=== PATIENT | female | born 1955 | race Caucasian/White ===

== ENCOUNTER 2017-06-09 07:00 | Day surgery (SDC) | payer OTHER ==
[~2017-06-09] VITALS: Ht 162.6 cm; Wt 106.6 kg
[~2017-06-09 07:00] MED LIST: ATIVAN1 MG PO; AZITHROMYCIN500 MG PO; B COMPLETE1 EACH PO; BAL B-1001 EACH PO; CEFDINIR300 MG PO; DEXAMETHASONE4 MG PO; DOK100 MG PO; HYDROCODON-ACE1 EAC8 PO; IBUPROFEN600 MG PO; IRON325 M1 PO; L-GLUTAMINE25 G1 MISC; LISINOPRIL30 MG PO; LOMOTIL TABLET1 EACH PO; NEURONTIN300 MG PO; NORCO 5-325 TA1 EACH PO; OMEPRAZOLE20 MG PO; ONDANSETRON ODT8 MG PO; OXYCODON-ACETA1 EAC2 PO; PHENERGAN25 MG RC; PREDNISONE20 MG PO; PROMETHAZINE HC25 M1 PO; VENTOLIN HFA18 GM; VENTOLIN HFA18 GM INH; VICODIN 5-5001 EACH PO; VISTARIL25 MG PO; VITAMIN C500 M1 PO; VITAMIN D250000 UNIT PO; VITAMIN D50000 UNI1 PO; VITAMIN E400 UNI1 PO; VITAMIN E400 UNI6 PO; ZOFRAN ODT8 MG PO
--- NOTE | 2017-06-09 09:08 | NUR ---
PT ASKING FOR SOMETHING FOR "MY NERVES" PT APPEARS TEARY AND ANIOUS. DR OAKES NOTIFIED AND ORDER RECIEVED FOR ATIVAN 1MG IV. IV MED GIVEN SLOW PUSH. PT RESTING IN BED WITH AT SIDE.
--- NOTE | 2017-06-09 10:04 | NUR ---
PT UP TO THE BATHROOM WITH RADHA BELTRANT. TOLERATED WELL WITH VOID NOTED. PT BACK TO BED AND ANESTHESIA TECH IN TO TALK WITH HER.
--- NOTE | 2017-06-09 10:05 | NUR ---
LE 1000 PT RESTING IN BED VISITING WITH FAMILY. PT APPEARS RELAXED AND REPORTS FEELING BETTER.
--- NOTE | 2017-06-09 11:09 | NUR ---
06/09/17 1109 Hailey Kramer 1104-PATIENT ARRIVED TO PACU ON 10L MASK O2 SAT 95% NONAROUSABLE. DRESSING TO LEFT CHEST CDI. 1107-PATIENT AROUSING EYES OPEN ORAL AIRWAY REMOVED. 10 L MASK 02 SAT 98%
[2017-06-09] MEDS ORDERED: PERCOCET 7.5-31 EACH PO (11:19)
--- NOTE | 2017-06-09 12:04 | NUR ---
PT ARRIVED FROM PACU. AWAKE AND ORIENTED. PT REPORTS 8/10 PAIN (SEE MAR FOR MEDICATION GIVEN). PT EATING CRAKERS AND DRINKING WATER, PT DENIES NAUSEA. CALLED TO BEDSIDE. BED RAILS UP, CALL LIGHT WITHIN REACH.
--- NOTE | 2017-06-10 07:14 | NUR ---
PT WAS SITTING IN BED, ALERT, ORIENTED AND SUPPORTED BY HER . SHE WAS EXCITED ABOUT HAVING HER PORTACATH REMOVED TODAY. REQUESTED PRAYER, WILL FOLLOW NEEDED
--- NOTE | 2017-07-10 07:48 | OR ---
[facility] [address] [place], [place] [address] Signed DATE OF PROCEDURE: 06/09/17 PREOPERATIVE DIAGNOSES History of stage III colon carcinoma. Left subclavian Port-A-Cath device (Bard port catheter). POSTOPERATIVE DIAGNOSES History of stage III colon carcinoma. Left subclavian Port-A-Cath device (Bard port catheter) PROCEDURE: Explantation of left subclavian Bard port catheter. SURGEON: Torres Oakes MD. ANESTHESIA: General LMA (Torres Ayala CRNA). INDICATION This 71-year-old white woman has completed chemotherapy for stage III colon cancer having undergone colon resection already. Right colectomy was performed, 7 of 29 lymph nodes were positive for metastatic disease. Her chemotherapy was undertaken under the direction of Dr. Burgos. It is notable that she had an episode of a port device, it had flipped in November requiring revision of the port device. She no longer needs the device, and on that basis, explantation was recommended. The patient has anxiety issues precluding appropriate explantation in the office setting, and on that basis, is admitted to undergo Port-A-Cath removal in the operating room setting. She understands as does her the risks of bleeding, infection, embolization of the device, and other unforeseen complications related to its removal and wishes to proceed. FINDINGS Small amount of subdermal dye that was used to lesly her port for access given her obesity was noted. The previous transverse incision was used in the left infraclavicular space over the pectoralis. The port itself was explanted fully without shearing or loss of the catheter in any way. It is notable that the port had a flipped once again. DESCRIPTION OF PROCEDURE The patient was brought to the operating room, given a general anesthetic by LMA technique. Preoperative antibiotics were deemed necessary or canceled. The left chest area was prepared with a Chlorhexidine solution and draped sterilely. A transverse incision was made directly over the previous incision. Dissection carried through the subcutaneous tissue sharply. The capsule of the port was incised and noted was the port device, which had flipped over. It was easily manipulated out of its capsule and the catheter withdrawn without problem. The entry point of the catheter was secured with a Electronically Signed By: TORRES OAKES MD 07/10/17 0748 PATIENT NAME: SHANNON PEÑA OPERATIVE REPORT DATE OF : 59 PHYSICIAN: TORRES OAKES MD REPORT #: [id number] REPORT IS CONFIDENTIAL AND NOT TO BE RELEASED WITHOUT AUTHORIZATION [facility] [address] [place], [place] [address] Signed hemostat and oversewn with 3-0 Vicryl. There was no untoward bleeding and the subcutaneous tissue reapproximated with interrupted 3-0 Vicryl and skin closed with running subcuticular 3-0 Vicryl. Blood was seen to be oozing from the wound, and therefore, the wound was opened once again and there was no bleeding in the deep tissue but the subdermal skin had persistent bleeding for which cautery was employed. The wound was once again closed in layers with interrupted 3-0 Vicryl and skin closed in subcuticular 3-0 Vicryl. Steri-Strips were applied as was a Mepilex silver sponge dressing and an OpSite. The patient was ultimately extubated and transferred to recovery in good condition having suffered no complications. Sponge, needle, and counts reported as correct x3. MD MARKOS Richter/Meka /[id number] cc: MD Margo Chavez PA-C Electronically Signed By: TORRES OAKES MD 07/10/17 0748 PATIENT NAME: MARIANASHANNON OPERATIVE REPORT DATE OF : 59 PHYSICIAN: TORRES OAKES MD REPORT #: [id number] REPORT IS CONFIDENTIAL AND NOT TO BE RELEASED WITHOUT AUTHORIZATION
== END 2017-06-09 13:30 | disposition home or self-care (01) ==
LOC: OPS 07:00 → DS 07:00 → OPS 09:30 → DS 09:30 → OPS 13:30
PROVIDERS: Surgery
PROC: 0JPT3WZ Removal of Totally Implantable Vascular Access Device from Trunk Subcutaneous Tissue and Fascia, Percutaneous Approach (ICD-10-PCS; principal; 2017-06-09 09:30)
DX: Z45.2 Encounter for adjustment and management of vascular access device (principal); I10 Essential (primary) hypertension; J45.909 Unspecified asthma, uncomplicated; G62.9 Polyneuropathy, unspecified; G89.29 Other chronic pain; Z85.038 Personal history of other malignant neoplasm of large intestine; Z88.0 Allergy status to penicillin; Z88.5 Allergy status to narcotic agent; Z91.018 Allergy to other foods; Z86.010 Personal history of colon polyps; Z96.642 Presence of left artificial hip joint; Z90.710 Acquired absence of both cervix and uterus; Z90.49 Acquired absence of other specified parts of digestive tract; Z98.890 Other specified postprocedural states
CPT/HCPCS: 00532; J1100; J1885; J2060; J2250; J2405; J2704; J2765; J3010; J7120

== ENCOUNTER 2017-08-07 08:50 | Day surgery (SDC) | payer OTHER ==
[~2017-08-07] VITALS: Ht 162.6 cm; Wt 104.3 kg
[~2017-08-07 08:50] MED LIST changes: +PERCOCET 7.5-31 EACH PO
[2017-08-07] MEDS ORDERED: VITAMIN D5000 UNIT PO (09:16)
--- NOTE | 2017-08-07 13:13 | NUR ---
08/07/17 1313 Ree Johnson 1258 RESP EVEN AND UNLABORED. 1305 PT TALKING AND ASKING QUESTIONS. 1309 MD AT BEDSIDE.
--- NOTE | 2017-08-08 10:30 | OR ---
[facility] [address] [place], [place] [address] Signed DATE OF OPERATION: 08/07/2017 SURGEON: Torres Oakes MD PREOPERATIVE DIAGNOSIS: History of right colectomy for stage III colon carcinoma. POSTOPERATIVE DIAGNOSIS: Polyp at 15 cm (excised) anastomosis widely patent. PROCEDURE: 1. Total colonoscopy. 2. Ileocolonic anastomosis with hot snare polypectomy x1. SURGEON: Torres Oakes MD ANESTHESIA: Intravenous sedation with fentanyl 150 mcg, Versed 9 mg. INDICATION: This 61-year-old white woman is the patient of Margo Russo PA-C and was found over a year ago to have right-sided colon cancer, for which she underwent right colectomy with ileocolic anastomosis. She underwent chemotherapy as well as lymph nodes were found to have metastatic disease. She has completed chemotherapy and has been doing well clinically. She is admitted at this time for surveillance colonoscopy, understand the risks of bleeding, infection, and perforation. FINDINGS: Prep was excellent. Complete colonoscopy was undertaken to the ileal right transverse colonic anastomosis. Passage of the scope into the ileum was easily accomplished as well. There was no sign of anastomotic stricture. There was one polyp at 15 cm about 6 mm in size, which was excised with hot snare polypectomy technique. The remaining colon was normal. DESCRIPTION OF PROCEDURE: The patient was brought to the endoscopy suite and placed in lateral decubitus position given intravenous sedation to the point of slurred speech and nystagmus. Digital rectal examination was normal. The Olympus video colonoscope was passed in the rectum and manipulated throughout the colon, ultimately intubating the right transverse colon, where Electronically Signed By: TORRES OAKES MD 08/08/17 1030 PATIENT NAME: SHANNON PEÑA OPERATIVE REPORT DATE OF : 59 PHYSICIAN: TORRES OAKES MD REPORT #: [id number] REPORT IS CONFIDENTIAL AND NOT TO BE RELEASED WITHOUT AUTHORIZATION [facility] [address] [place], [place] [address] Signed the ileocolonic anastomosis was identified. The scope was easily passed into it. There was no sign of stricture. The ileum was normal. Scope was withdrawn. Careful examination throughout showed no sign of abnormality until 15 cm from the anal verge, where a small sessile polyp was noted. It was about 8 mm in size. It was excised with hot snare polypectomy technique without problem and passed for permanent pathology. Further withdrawal of scope allowed for retroflexed view in the rectum, which was normal. Scope was removed and the patient was taken to recovery room in good condition. CONCLUDING DIAGNOSIS: Polyp at 15 cm, completely excised. PLAN: Recommend repeat colonoscopy in one year, sooner if clinically indicated. She will return to the ongoing care of Margo Russo. MD MARKOS Richter/SHAILESH /[id number] cc: YUMIKO Heath MD Electronically Signed By: TORRES OAKES MD 08/08/17 1030 PATIENT NAME: SHANNON PEÑA BARTOLOME OPERATIVE REPORT DATE OF : 59 PHYSICIAN: TORRES OAKES MD REPORT #: [id number] REPORT IS CONFIDENTIAL AND NOT TO BE RELEASED WITHOUT AUTHORIZATION
== END 2017-08-07 13:41 | disposition home or self-care (01) ==
LOC: DS 08:50
PROVIDERS: Surgery
PROC: 0DBP8ZX Excision of Rectum, Via Natural or Artificial Opening Endoscopic, Diagnostic (ICD-10-PCS; principal; 2017-08-07 09:45)
DX: Z12.11 Encounter for screening for malignant neoplasm of colon (principal); K62.1 Rectal polyp; I10 Essential (primary) hypertension; G62.9 Polyneuropathy, unspecified; G89.29 Other chronic pain; J45.909 Unspecified asthma, uncomplicated; Z88.5 Allergy status to narcotic agent; Z88.0 Allergy status to penicillin; Z90.710 Acquired absence of both cervix and uterus; Z90.49 Acquired absence of other specified parts of digestive tract; Z96.652 Presence of left artificial knee joint; Z98.890 Other specified postprocedural states; Z85.038 Personal history of other malignant neoplasm of large intestine
CPT/HCPCS: 88305; 99152; 99153; J2250; J3010; J7120

== ENCOUNTER 2018-01-23 11:00 | Emergency (ER) | payer OTHER ==
[~2018-01-23] VITALS: Ht 162.6 cm; Wt 116.7 kg
[~2018-01-23 11:00] MED LIST changes: +VITAMIN D5000 UNIT PO
[2018-01-23] MEDS ORDERED: VITAMIN B-125000 MC1 PO (11:18)
[2018-01-23] MEDS ORDERED: MAGNESIUM250 M1 PO (11:19)
[2018-01-23] MEDS ORDERED: OMEPRAZOLE20 MG PO (11:19)
[2018-01-23] MEDS ORDERED: ONDANSETRON ODT8 MG PO (15:58)
[2018-01-23] MEDS ORDERED: KEFLEX500 MG PO (15:58)
[2018-01-23] MEDS ORDERED: NORCO 7.5-3251 EACH PO (17:03)
[2018-01-23] MEDS ORDERED: PYRIDIUM200 MG PO (17:07)
== END 2018-01-23 17:17 | disposition home or self-care (01) ==
LOC: ED 11:00
PROC: 0T9B70Z Drainage of Bladder with Drainage Device, Via Natural or Artificial Opening (ICD-10-PCS; principal; 2018-01-23)
DX: N39.0 Urinary tract infection, site not specified (principal); N23 Unspecified renal colic; Z88.0 Allergy status to penicillin; Z91.018 Allergy to other foods; Z88.1 Allergy status to other antibiotic agents; Z88.5 Allergy status to narcotic agent; Z79.899 Other long term (current) drug therapy
CPT/HCPCS: 51701; 74177; 80053; 81001; 85025; 87077; 87088; 87186; 96374; 96375; 96376; 99284; J0696; J1170; J1885; J2405; Q9967

== ENCOUNTER 2018-10-11 06:30 | Day surgery (SDC) | payer MEDICARE ==
[~2018-10-11] VITALS: Ht 160 cm; Wt 117.9 kg
[~2018-10-11 06:30] MED LIST changes: +KEFLEX500 MG PO; +MAGNESIUM250 M1 PO; +NORCO 7.5-3251 EACH PO; +PYRIDIUM200 MG PO; +VITAMIN B-125000 MC1 PO
[2018-10-11] MEDS ORDERED: ASPIRIN325 MG PO (07:00)
--- NOTE | 2018-10-11 08:11 | NUR ---
10/11/18 0811 Rayna Sanchez 0757- PT ARRIVES TO PACU ALERT. PT REPORTS NO PAIN OR NAUSEA. RESP EVEN AND UNLABORED. OXYGEN SAT MID TO HIGH 90'S ON 4L VIA NC. 0804- OXYGEN TURNED OFF. OXYGEN SAT MID 90'S ON RA. 0805- DR. OAKES AT THE BEDSIDE TO TALK WITH THE PT. 0809- PT TURNED HERSELF TO HER BACK AND SAT UP IN BED. PT REPORTS NO DIZZINESS, PAIN, OR NAUSEA. PT DRINKING ICE WATER. TOLERATING WELL.
--- NOTE | 2018-10-11 08:51 | NUR ---
HAS RETURNED FOR LOW BP. RECEIVING ANOTHER LITER LR.
--- NOTE | 2018-10-11 20:19 | OR ---
[facility] [address] [place], [place] [address] Signed DATE OF OPERATION: 10/11/2018 SURGEON: Torres Oakes MD PREOPERATIVE DIAGNOSIS: History of right colectomy for colon cancer 2016, stage III, status post incomplete chemotherapy regimen. POSTOPERATIVE DIAGNOSIS: Small polyps x2 (sigmoid). PROCEDURE: Total colonoscopy to ileocolic anastomosis with snare polypectomy x1 and cold morcellation polypectomy x1. ANESTHESIA: Intravenous sedation, fentanyl 100 mcg, Versed 4 mg. INDICATION: This 63-year-old white woman is a patient of Aryan Carrion and Dr. Najma Lemus. She was found to have a right-sided colon cancer and underwent right hemicolectomy by or in 2015. She did not tolerate a full course of chemotherapy, though she did have regional lymph node involvement. She is free of symptoms currently, but is here for surveillance colonoscopy. She understands risks of bleeding, infection, and perforation related to colonoscopy and wished to proceed. FINDINGS: The prep was excellent. Complete colonoscopy was undertaken to the ileocolic anastomosis. There were 2 small polyps noted in the sigmoid, both excised completely. The remaining colon was normal. PROCEDURE IN DETAIL: The patient was brought to the endoscopy suite and placed in lateral decubitus position, given intravenous sedation to a point of slurred speech and nystagmus. Digital rectal examination was normal. An Olympus video colonoscope was passed in the rectum and manipulated throughout the colon ultimately approaching the ileocolic anastomosis. The scope was carefully withdrawn and examination showed a very excellent bowel prep. In the sigmoid colon was a small sessile polyp, this was excised with cold snare polypectomy technique. Specimen passed for pathology. Further withdrawal showed another similar such polyp also small. Narrow band imaging confirmed it likely to be Electronically Signed By: TORRES OAKES MD 10/11/182018 PATIENT NAME: SHANNON PEÑA OPERATIVE REPORT DATE OF : 59 REPORT #: [id number] PHYSICIAN: TORRES OAKES MD PCP: ARYAN CARRION PAC REPORT IS CONFIDENTIAL AND NOT TO BE RELEASED WITHOUT AUTHORIZATION [facility] [address] [place], [place] [address] Signed adenomatous. This was excised with cold morcellation technique alone. Retroflexed view in the rectum was normal. Scope was removed and the patient was taken to recovery room in good condition. CONCLUDING DIAGNOSIS: Polyps x2. PLAN: Recommend repeat colonoscopy in 1 year. She will continue to follow up with Dr. Lemus as well. She will return to the ongoing general care of LIVE Mcneil. MD MARKOS Richter/SHAILESH /[id number] cc: MD Aryan Villavicencio PA Copies: NAJMA LEMUS MD ~ Electronically Signed By: TORRES OAKES MD 10/11/182018 PATIENT NAME: SHANNON PEÑA OPERATIVE REPORT DATE OF : 59 REPORT #: [id number] PHYSICIAN: TORRES OAKES MD PCP: ARYAN CARRION PAC REPORT IS CONFIDENTIAL AND NOT TO BE RELEASED WITHOUT AUTHORIZATION
== END 2018-10-11 09:35 | disposition home or self-care (01) ==
LOC: OPS 06:30 → DS 06:30 → OPS 06:45
PROVIDERS: Surgery
PROC: 0DBN8ZZ Excision of Sigmoid Colon, Via Natural or Artificial Opening Endoscopic (ICD-10-PCS; principal; 2018-10-11 06:45)
DX: Z12.11 Encounter for screening for malignant neoplasm of colon (principal); K63.5 Polyp of colon; E66.01 Morbid (severe) obesity due to excess calories; J45.909 Unspecified asthma, uncomplicated; I10 Essential (primary) hypertension; Z85.038 Personal history of other malignant neoplasm of large intestine; Z90.49 Acquired absence of other specified parts of digestive tract; Z88.1 Allergy status to other antibiotic agents; Z88.5 Allergy status to narcotic agent; Z86.010 Personal history of colon polyps; Z98.890 Other specified postprocedural states
CPT/HCPCS: 88305; 99153; G0500; J2250; J3010; J7120

== ENCOUNTER 2018-10-16 14:47 | Emergency (ER) | payer MEDICARE ==
[~2018-10-16] VITALS: Ht 160 cm; Wt 118.3 kg
[~2018-10-16 14:47] MED LIST changes: +ASPIRIN325 MG PO
--- OUTSIDE RECORDS SUMMARY | 2018-10-16 14:50 | XMS ---
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 Sabino VISIT COUNT (12 MO.) 2 MIGUEL Denise TOTAL 2 NOTE: Visits indicate total known visits. ED/UCC VISIT TRACKING (12 MO.) 10/16/2018 14:48 [facility]UEL [facility] OR TYPE: Emergency COMPLAINT: - FLU SYMPTOMS 01/23/2018 11:01 MIGUEL [facility] OR TYPE: Emergency COMPLAINT: - ABD PAIN DIAGNOSES: - Other fci (current) drug therapy - Allergy status to narcotic agent status - Urinary tract infection, site not specified - Allergy status to penicillin - Unspecified renal colic - Lower abdominal pain, unspecified - Allergy status to other antibiotic agents status - Allergy to other foods INPATIENT VISIT TRACKING (12 MO.) 07/09/2018 13:52 [facility] OR TYPE: Medical Surgical DIAGNOSES: - RIGHT TOTAL KNEE ARTHROPLASTY 07/06/2018 07:40 Shimon Gamble [facility] [place] OR TYPE: Medical Surgical COMPLAINT: - RIGHT TOTAL KNEE ARTHROPLASTY [email or web address]
[2018-10-16] MEDS ORDERED: TAMIFLU75 MG PO (15:44)
[2018-10-16] MEDS ORDERED: DOXYCYCLINE HY100 MG PO (15:44)
[2018-10-16] MEDS ORDERED: PROMETHAZINE-C473 ML PO (15:44)
== END 2018-10-16 15:15 | disposition home or self-care (01) ==
LOC: ED 14:47
DX: R05 Cough (principal); R11.0 Nausea; R10.84 Generalized abdominal pain; R50.9 Fever, unspecified

== ENCOUNTER 2018-10-16 15:22 | Emergency (ER) | payer MEDICARE ==
[~2018-10-16] VITALS: Ht 160 cm; Wt 118.3 kg
--- OUTSIDE RECORDS SUMMARY | 2018-10-16 15:24 | XMS ---
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 Sabino VISIT COUNT (12 MO.) [address] [place] [address] TOTAL 3 NOTE: Visits indicate total known visits. 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
[2018-10-16] MEDS ORDERED: TAMIFLU75 MG PO (15:44)
[2018-10-16] MEDS ORDERED: DOXYCYCLINE HY100 MG PO (15:44)
[2018-10-16] MEDS ORDERED: PROMETHAZINE-C473 ML PO (15:44)
== END 2018-10-16 15:52 | disposition home or self-care (01) ==
LOC: ED 15:22
DX: J11.1 Influenza due to unidentified influenza virus with other respiratory manifestations (principal); J45.909 Unspecified asthma, uncomplicated; Z88.0 Allergy status to penicillin; Z88.8 Allergy status to other drugs, medicaments and biological substances; Z91.018 Allergy to other foods; Z88.5 Allergy status to narcotic agent; Z79.899 Other long term (current) drug therapy; Z79.82 Long term (current) use of aspirin
CPT/HCPCS: 99283

== ENCOUNTER 2019-12-19 19:24 | Emergency (ER) | payer MEDICARE ==
[~2019-12-19] VITALS: Ht 160 cm; Wt 119.3 kg
[~2019-12-19 19:24] MED LIST changes: +CLARITIN5 MG PO; +DOXYCYCLINE HY100 MG PO; +GABAPENTIN300 MG PO; +PROMETHAZINE-C473 ML PO; +TAMIFLU75 MG PO
[2019-12-19] MEDS ORDERED: NORCO 5-325 TA1 EACH PO (21:11)
== END 2019-12-19 22:06 | disposition home or self-care (01) ==
LOC: ED 19:24
DX: S09.90XA Unspecified injury of head, initial encounter (principal); S16.1XXA Strain of muscle, fascia and tendon at neck level, initial encounter; J45.909 Unspecified asthma, uncomplicated; Z88.0 Allergy status to penicillin; Z88.1 Allergy status to other antibiotic agents; Z88.5 Allergy status to narcotic agent; W18.30XA Fall on same level, unspecified, initial encounter
CPT/HCPCS: 70450; 72125; 73030; 73140; 73502; 96374; 96375; 96376; 99284-25; J1170; J2060; J2405; J2765

== ENCOUNTER 2020-06-22 07:12 | Day surgery (SDC) | payer MEDICARE ==
[~2020-06-22] VITALS: Ht 160 cm; Wt 119.3 kg
[2020-06-22] MEDS ORDERED: SUDOGEST30 MG PO (07:47)
[2020-06-22] MEDS ORDERED: ALLER-FLO15.8 ML (07:47)
--- NOTE | 2020-06-22 08:00 | NUR ---
LEVAQUIN ABX INFUSING IN RIGHT ARM, PT STATES RIGHT ARM IS ITCHING. PT HAS RED SCRATCH MANRIQUEZ AT IV INSERTION SITE AND AC PORTION OF ARM. IV ABX IMMEDIATELY STOPPED AND LINE FLUSHED WITH LR. APPROX 5 MINUTES AFTER ABX STOPPED, PT DENIES ANY MORE ITCHING. VERBAL ORDERS RECEIVED FOR DIFF ABX, SEE EMAR. PT TOLERATES NEW IV ABX, DENIES ANY ITCHING STATES "ONLY FEEL COLD UP MY ARM." PT SPOUSE AT BEDSIDE, CALL LIGHT WITHIN REACH.
--- NOTE | 2020-06-22 09:11 | NUR ---
PT CONT TO REST IN BED WITH IV ABX SLOWLY INFUSING. PT DENIES ANY S\S OF REACTION. PROVIDED WARM BLANKET, SPOUSE REMAINS AT BEDSIDE.
--- NOTE | 2020-06-22 10:18 | NUR ---
06/22/20 1018 Bhavin Zelaya 1010) AWAKE, BUT SLEEPY. SLIGHT ABD PAIN
--- NOTE | 2020-06-22 11:01 | NUR ---
CONNECTED WITH PT BEFORE PREP BY RN BEGAN. SHE IS ALERT, ORIENTED AND SUPPORTED BY HER . PT IS POSITIVE, HOPEFUL. GAVE BLESSING WILL FOLLOW
--- NOTE | 2020-06-22 13:52 | OR ---
[facility] [address] [place], [place] [address] Signed DATE OF OPERATION: 06/22/2020 SURGEON: Torres Oakes MD PREOPERATIVE DIAGNOSIS: History of right colectomy for stage III colon carcinoma in 2016. POSTOPERATIVE DIAGNOSIS: Small polyp bradley-cecum (proximal transverse colon). PROCEDURE: Total colonoscopy to cecum with cold morcellation polypectomy x1. ANESTHESIA: Intravenous sedation, fentanyl 100 mcg and Versed 7 mg. INDICATIONS: This 64-year-old white woman is known to have undergone right colectomy by me in 2016, for what turned out to be a stage III colon cancer. She is symptom-free currently. She is here for surveillance colonoscopy. She understands the risks of bleeding, infection, perforation, wished to proceed. FINDINGS: The prep was excellent. Complete colonoscopy was undertaken to the anastomosis, which was widely patent. There is a small probable adenomatous polyp of the bradley-cecum, a centimeter or two from the ileocolic anastomosis. This was excised with cold snare technique without problem. The remaining colon was normal. DESCRIPTION OF PROCEDURE: The patient was brought to the endoscopy suite and placed in lateral decubitus position, given intravenous sedation to the point of slurred speech and nystagmus. Digital rectal examination was normal. Olympus video colonoscope was passed into the rectum and manipulated throughout the colon, ultimately passed into the right transverse colon where the ileocolic anastomosis was noted. With narrow band imaging, a small polyp was identified. This was excised with cold snare technique. The scope was withdrawn from that point. Examination throughout showed no sign of other abnormality including retroflexed view of the rectum. Of note, the ileocolic anastomosis was widely patent and the ileum was traversed with the scope at that time. The patient was then taken to the recovery room in good Electronically Signed By: TORRES OAKES MD 06/22/20 1352 PATIENT NAME: SHANNON PEÑA OPERATIVE REPORT DATE OF : 59 REPORT #: [id number] PHYSICIAN: TORRES OAKES MD PCP: ARYAN CARRION PAC REPORT IS CONFIDENTIAL AND NOT TO BE RELEASED WITHOUT AUTHORIZATION [facility] [address] [place], [place] [address] Signed condition, having suffered no complication. CONCLUDING DIAGNOSIS: Small polyp right transverse colon near ileocolic anastomosis. PLAN: Recommend repeat colonoscopy in one year based on findings of polyp. We will review pathology report. Very little chance there is dysplasia or malignancy. MD MARKOS Richter/MODL /[id number] cc: Najma Lemus MD Copies: NAJMA LEMUS MD ~ Electronically Signed By: TORRES OAKES MD 06/22/20 1352 PATIENT NAME: SHANNON PEÑA OPERATIVE REPORT DATE OF : 59 REPORT #: [id number] PHYSICIAN: TORRES OAKES MD PCP: ARYAN CARRION PAC REPORT IS CONFIDENTIAL AND NOT TO BE RELEASED WITHOUT AUTHORIZATION
--- NOTE | 2020-06-25 11:37 | PATH ---
[facility] [address] [facility] [place] [address] Signed SPECIMEN(S): A SPLENIC FLEXURE POLYP SPECIMEN SOURCE: A. SPLENIC FLEXURE POLYP CLINICAL HISTORY: Colonoscopy. History of colon cancer, history of hyperplastic polyps. Postop: Polyp x 1. MICROSCOPIC DESCRIPTION: Histologic sections of all submitted blocks are examined by light microscopy. These findings, together with the gross examination, support the pathologic diagnosis. FINAL PATHOLOGIC DIAGNOSIS: Splenic flexure polyp: - Benign colonic mucosa with an incidental mucosal lymphoid aggregate. JVR:smh:[id number] GROSS DESCRIPTION: The specimen, labeled "GM," and designated on the requisition "splenic flexure polypectomy," is received in formalin and consists of four fragments of pink-gray tissue (0.7 x 0.5 x 0.3 cm in aggregate). The specimen is submitted entirely in cassette (A1). AC (under the direct supervision of a pathologist) The Gross Description was prepared using a voice recognition system. The report was reviewed for accuracy; however, sound-alike word errors, addition and/or deletions may occur. If there is any question about this report, please contact Client Services. PERFORMING LABORATORY: The technical component was performed by [employer], [address] [place] [id number] (Academic Advising Director: Angelica Rajput MD; CLIA# [id number]), Professional interpretation was performed by [employer], [address] [address] (Academic Advising Director: Mp Sánchez M.D.). Diagnostician: Mp Sánchez MD Pathologist Electronically Signed 06/25/2020 PATIENT NAME: SHANNON PEÑA PATHOLOGY DATE OF : 59 REPORT #: [id number] PHYSICIAN: LEE PATHOLOGY PCP: ARYAN CARRION PAC REPORT IS CONFIDENTIAL AND NOT TO BE RELEASED WITHOUT AUTHORIZATION [facility] [address] [place] [id number] Signed Copies: ~ PATIENT NAME: SHANNON PEÑA PATHOLOGY DATE OF : 59 REPORT #: [id number] PHYSICIAN: VIRGILIOYTE PATHOLOGY PCP: ARYAN CARRION PAC REPORT IS CONFIDENTIAL AND NOT TO BE RELEASED WITHOUT AUTHORIZATION
== END 2020-06-22 10:55 | disposition home or self-care (01) ==
LOC: DS 07:12 → OPS 07:12 → DS 08:30 → OPS 10:55
PROVIDERS: ATTEND Surgery
PROC: 0DBL8ZZ Excision of Transverse Colon, Via Natural or Artificial Opening Endoscopic (ICD-10-PCS; principal; 2020-06-22 08:30)
DX: Z12.11 Encounter for screening for malignant neoplasm of colon (principal); K63.5 Polyp of colon; K63.89 Other specified diseases of intestine; Z85.038 Personal history of other malignant neoplasm of large intestine; Z90.49 Acquired absence of other specified parts of digestive tract; Z88.1 Allergy status to other antibiotic agents; Z88.5 Allergy status to narcotic agent; Z88.0 Allergy status to penicillin; Z88.8 Allergy status to other drugs, medicaments and biological substances; Z79.899 Other long term (current) drug therapy
CPT/HCPCS: 99153; G0500; J1956; J2250; J2405; J3010; J7121

== ENCOUNTER 2021-01-02 15:24 | Emergency (ER) | payer OTHER, MEDICARE ==
[~2021-01-02] VITALS: Ht 160 cm; Wt 117.9 kg
[~2021-01-02 15:24] MED LIST changes: +ALLER-FLO15.8 ML; +SUDOGEST30 MG PO
[2021-01-02] MEDS ORDERED: NAPROSYN500 MG PO (17:08)
[2021-01-02] MEDS ORDERED: LIDODERM1 EACH TD (17:08)
== END 2021-01-02 17:41 | disposition home or self-care (01) ==
LOC: ED 15:24
DX: S16.1XXA Strain of muscle, fascia and tendon at neck level, initial encounter (principal); V43.52XA Car driver injured in collision with other type car in traffic accident, initial encounter; J45.909 Unspecified asthma, uncomplicated; Z88.0 Allergy status to penicillin; Z88.8 Allergy status to other drugs, medicaments and biological substances; Z88.1 Allergy status to other antibiotic agents; Z88.5 Allergy status to narcotic agent; Z79.899 Other long term (current) drug therapy; Z79.82 Long term (current) use of aspirin
CPT/HCPCS: 72125; 96374; 96375; 99284-25; J1885; J2060; J2405

== ENCOUNTER 2021-08-17 20:40 | Emergency (ER) | payer MEDICARE ==
[~2021-08-17] VITALS: Ht 160 cm; Wt 108.9 kg
[~2021-08-17 20:40] MED LIST changes: +LIDODERM1 EACH TD; +NAPROSYN500 MG PO
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
[2021-08-17] MEDS ORDERED: BENADRYL ALLERG25 MG PO (20:55)
[2021-08-17] MEDS ORDERED: METRONIDAZOLE500 MG PO (20:55)
--- NOTE | 2021-08-19 20:01 | EKG ---
[facility] [address] [facility] [place], [place] [address] Signed Normal sinus rhythm Normal ECG When compared with ECG of 26-AUG-2016 15:57, No significant change was found Confirmed by QUYEN ORR DO ([id number]) on 08/19/2021 8:00:45 PM Electronically Signed By: QUYEN ORR DO 08/19/212000 PATIENT NAME: SHANNON PEÑA Electrocardiogram DATE OF : 59 PHYSICIAN: QUYEN ORR DO REPORT #: [id number] REPORT IS CONFIDENTIAL AND NOT TO BE RELEASED WITHOUT AUTHORIZATION
== END 2021-08-17 22:40 | disposition home or self-care (01) ==
LOC: ED 20:40
DX: T78.40XA Allergy, unspecified, initial encounter (principal); J45.909 Unspecified asthma, uncomplicated; Z88.0 Allergy status to penicillin; Z88.8 Allergy status to other drugs, medicaments and biological substances; Z88.5 Allergy status to narcotic agent; Z88.1 Allergy status to other antibiotic agents; Z79.899 Other long term (current) drug therapy
CPT/HCPCS: 93005; 93010; 96374; 96375; 99283-25; J2930

== ENCOUNTER 2022-02-11 05:59 | Inpatient (IN) | payer MEDICARE ==
[~2022-02-11] VITALS: Ht 160 cm; Wt 104.5 kg
[~2022-02-11 05:59] MED LIST changes: -ALLER-FLO15.8 ML; +BENADRYL ALLERG25 MG PO; +FLONASE ALLERG9.9 ML NAS; +METRONIDAZOLE500 MG PO; +[UNRECOGNIZED DRUG - OTHER] PO
[2022-02-11] MEDS ORDERED: HYDROCODON-ACE1 EAC8 PO (06:13)
--- NOTE | 2022-02-11 06:34 | NUR ---
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 SEE ORDERS.
--- NOTE | 2022-02-11 12:45 | NUR ---
02/11/22 1245 Paola Silverio 1143 PT ARRIVED IN PACU NON RESPONSIVE TO NOXIOUS STIMULI WITH OPA IN PLACE. 1205 PT REACTIVE. OPA REMOVED. 1219 C/O 9/10 ABD PAIN. FENTANYL 50MCG GIVEN IVP. 1225 NO CHANGE IN PAIN LEVEL. FENTANYL 50MCG GIVEN IVP. 1231 TYLENOL 1 GM GIVEN IV FOR 9/10 ABD PAIN. 1232 TORADOL 15MG GIVEN IVP. OTHER 15MG GIVEN IN SURGERY. 1237 NO CHANGE IN PAIN LEVEL. STATES "IT HURTS WORSE THAN BEFORE SURGERY." DILAUDID 0.5MG GIVEN IVP. 1244 PAIN DOWN TO 8/10. DILAUDID 0.5MG GIVEN IVP.
--- NOTE | 2022-02-11 13:25 | NUR ---
Pt arrives to med surg unit via stretcher, oriented, drowsy. on 2L NC with spo2 93% on CPOX. VSS. ARSEN drain wNL, ABD incision covered, C/D/I. ABD soft, tender. Pt at bedside.
--- NOTE | 2022-02-11 14:14 | NUR ---
HUBER STEELE CONTACTED ME AND INFORMED ME PT WOULD LIKE ME TO VISIT. PT IN - ALERT, ORIENTED AND SUPPORTED BY HER SHLOMO. PT INFORMED ME THAT "IT DOESN'T LOOK GOOD. LOTS OF SPOTS". DR OAKES WITH TRY TO DO LARRO SCOPIC PROCEDULE, BUT MAY HAVE TO OPEN. GAVE ENCOURAGEMENT, CHALLENGED TO WAIT TO KNOW WHAT WE ARE UP AGAINST. PT EXPRESS HOPE, HAD JUST WELCOMED NEW G.G.CHILD TO THE FAMILY-BROUGHT A SMILE. SHLOMO VERY SUPPORTIVE, HAD PRAYER WITH BOTH AND WILL FOLLOW.
--- NOTE | 2022-02-11 14:25 | NUR ---
PT BEING ADMITTED TO M/S RM 111. SHLOMO DOWN AHEAD OF PT-STILL IN PACU. DIRECTED TO RM, SHLOMO WOULD LIKE TO REST SOME BEFORE PT COMES. WILL FOLLOW
--- NOTE | 2022-02-11 14:30 | NUR ---
post op vitals stable. pt drowsy but arousable, she states continued pain, medicated with scheduled PO tylenol and IV toradol at this time (8 pain). Pt able to tolerate PO at this time with ice water.
--- NOTE | 2022-02-11 15:53 | NUR ---
Pt medicated with 4mg of morphine IV for 10/10 pain to abdomen. Ice pack to incision. Repositioned with pillows, pt tearful and grimacing throughout. Pt reassured, agreeable to plan of care although painful. at bedside. post op vitals stable. Pt remains on 2L NC, 95%, does desat with sleep.
--- NOTE | 2022-02-11 16:25 | NUR ---
Pt continues to report 10/10 abdominal/generalized pain. 6mg morphine administered at this time. Repositioned in bed, new ice pack to incision. Attempted to call Dr merritt to update, will attempt again shortly
--- NOTE | 2022-02-11 19:10 | NUR ---
REPORT RECEIVED FROM HUBER ASCENCIO. pt RESTING IN BED AWAKE, DROWSY. RATES PAIN 5-6/10. ICE PACK PROVIDED AND IN PLACE. SCDS ON. IVF INFUSING WNL. CALL LIGHT IN REACH. NO REQUESTS AT THIS TIME.
--- NOTE | 2022-02-11 20:30 | NUR ---
ASSISTED PRIMARY RN CHICO. V/S AND I&O'S COMPLETED. EMPTIED URINAL AND ARSEN. BEDSIDE FAN PROVIDED. PICKED UP GARBAGE AND USED BLANKETS.
--- NOTE | 2022-02-11 20:58 | NUR ---
pt AWAKE RESTING IN BED. ASSISTED TO REPOSITION IN BED, PILLOWS UNDER LEFT HIP, PAINFUL IN LEFT HIP (CHRONIC). pt RATES PAIN IN ABDOMEN 7-8/10. PRN PAIN MEDICATION ADMINISTERED. CPOX IN PLACE, SPO2 WNL WITH 2L OXYGEN BY NC. IV SITES FLUSHED WNL. IV ANTIBIOTIC INFUSING. ASSESSMENT COMPLETE. BOWEL TONES ACTIVE, ABD SOFT, TENDER. DRESSINGS CDI, LAP SITES WITH STERI STRIPS IN PLACE, DRIED SANGUINOUS DRAINAGE X 2. ARSEN DRAIN STRIPPED. SCRUGGS EMPTIED. FAN PROVIDED. SCDS ON. CALL LIGHT IN REACH. LIGHTS OFF IN ROOM.
--- NOTE | 2022-02-11 22:43 | NUR ---
IN ROOM TO ADMINISTER SCHEDULED TYLENOL. pt RESTING IN BED WITH EYES CLOSED. BREATHING UNLABORED, RR 16. SPO2 93% WITH 2L OXYGEN BY NC IN PLACE. pt ALLOWED TO REST AT THIS TIME. NO DISTRESS NOTED.
--- NOTE | 2022-02-11 23:22 | NUR ---
CPOX ALARMING, LOW BATTERY ALARM, CONNECTIONS SECURE. pt RATES PAIN 4/10 AFTER MOVEMENT IN ABDOMEN. SCHEDULED TYLENOL ADMINISTERED. NEW ICE PACK PROVIDED. IVF INFUSING WNL. CALL LIGHT IN REACH.
--- NOTE | 2022-02-12 00:26 | NUR ---
CALL LIGHT ANSWERED. IN TO ASSIST PT TO REPOSITION TO RIGHT SIDE. AFTER CHANGING POSITIONS PT REPORTED BURNING PAIN IN ABD. REPOSITIONED TO BACK. PRN FOR PAIN ADMIN PER EMAR. PT REPORTS RELIEF. FRESH ICE PACK PROVIDED FOR ABD. APPLE JUICE PROVIDED. NO FURTHER NEEDS.
--- NOTE | 2022-02-12 01:07 | NUR ---
CALL LIGHT ANSWERED. pt COMPLAINS OF 8/10 PAIN IN ABDOMEN, "BURNING, PULLING, ACHE". ASSESSMENT COMPLETE. DRESSINGS INTACT, NO NEW DRAINAGE ON LAP SITES OR MIDLINE DRESSING. BOWEL TONES ACTIVE X 4, ABD SOFT, NON-TENDER WITH PALPATION. pt DENIES NAUSEA. PRN PAIN MEDICATION ADMINISTERED. VSS. ARSEN DRAIN EMPTIED, 48 MLS SANGUINOUS FLUID. SCRUGGS EMPTIED. IVF INFUSING WNL. CALL LIGHT IN REACH. LIGHTS OFF IN ROOM. SCDS ON. pt ASSISTED TO REPOSITION IN BED 2PA.
--- NOTE | 2022-02-12 02:00 | NUR ---
IN ROOM FOR ANTIBIOTIC ADMINISTRATION. pt RATES PAIN 7/10 IN RIGHT SIDE OF ABDOMEN. PRN PAIN MEDICATION ADMINISTERED. pt STATES "IT MIGHT BE GAS PAIN". ENCOURAGED TO GET OUT OF BED. HUBER ABDI AND HUBER NOEL IN ROOM WITH pt TO ASSIST OUT OF BED.
--- NOTE | 2022-02-12 02:45 | NUR ---
pt BACK IN BED AFTER ATTEMPTING TO AMBULATE. STATES PAIN IS WORSE, RATES PAIN 8/10. IN RIGHT SIDE OF ABDOMEN. PRN PAIN MEDICATION ADMINISTERED. IVF INFUSING WNL. CALL LIGHT IN REACH.
--- NOTE | 2022-02-12 03:25 | NUR ---
CALL LIGHT ON. ASSISTED pt TO PLACE BED MORALES. "I TRIED TO GET UP JUST A LITTLE BIT AGO AND I GOT TOO DIZZY" pt HAD WATERY BM WITH SCANT AMOUNT OF SOLIDS. pt REPORTS SHE HAS BEEN PASSING GAS. PERICARE DONE. pt SETTLED IN BED. CALL LIGHT WITHIN REACH.
--- NOTE | 2022-02-12 03:53 | NUR ---
CALL LIGHT ANSWERED. pt PASSING GAS, INCONTINENT OF LIQUID STOOL. ATTENDS CHANGED. ARSEN DRAIN WITH RED DRAINAGE, EMPTIED, 30 MLS. pt ASSISTED TO REPOSITION WITH 2PA IN BED. REQUESTING BREAK FROM SCDS AT THIS TIME. IVF INFUSING WNL. pt RATES PAIN 6/10 IN ABDOMEN. STATES "IT'S MUCH BETTER THAN THE 10. I FEEL BETTER AFTER PASSING GAS." CALL LIGHT IN REACH. LIGHTS OFF IN ROOM.
--- NOTE | 2022-02-12 05:17 | NUR ---
CALL LIGHT ANSWERED. pt REQUESTING PAIN MEDICATION, RATES PAIN 6/10 AT THIS TIME. "ITS MUCH BETTER AFTER PASSING GAS. THE PAIN IS THE SAME BEFORE NOW". PRN PAIN MEDICATION ADMINISTERED. pt INCONTINENT OF GREEN LIQUID STOOL. ATTENDS CHANGED. VSS. ARSEN DRAIN EMPTIED, RED DRAINAGE. SCDS OFF PER REQUEST OF pt. NO ADDITIONAL REQUESTS CALL LIGHT IN REACH. IVF INFUSING WNL.
--- NOTE | 2022-02-12 05:25 | NUR ---
pt WITH 98 MLS RED DRAINGE FROM ARSEN DRAIN THIS SHIFT. pt PAINFUL IN RLQ THROUGHOUT SHIFT. THREE LIQUID STOOLS THIS SHIFT, AND FLATUS PRESENT. INCONTINENT OF STOOL, ONE LIQUID BM ON BED MORALES. pt ABLE TO AMBULATE OUTSIDE OF DOORWAY, DIZZINESS NOTED WITH AMBULATION. ONE BOUT OF NAUSEA, NO EMESIS. PRN NAUSEA MEDICATION X 1. PRN PAIN MEDICATIONS ADMINISTERED THROUGHOUT SHIFT, ICE PACKS PROVIDED. SCRUGGS DRAINING QS URINE OUTPUT.
--- NOTE | 2022-02-12 06:47 | NUR ---
pt AWAKE, DROWSY WHEN RN ENTERS ROOM. STATES PAIN INCREASING IN RLQ UPON AWAKENING. RATES PAIN 6/10. PRN AND SCHEDULED PAIN MEDICATION ADMINISTERED. ICE WATER REFILLED. CALL LIGHT IN REACH.
--- NOTE | 2022-02-12 07:20 | NUR ---
Report received from [facility]. Pt resting in bed with eyes closed, even and unlabored respirations noted, no current needs identified. Call light in reach, will continue plan of care
--- NOTE | 2022-02-12 08:47 | NUR ---
Scheduled medications administered and assessment complete. Pt sitting up in bed eating breakfast, at bedside. Pt on room air while awake, 96%. Pt states pain 6/10, PRN toradol administered at this time. Bowel sounds active. Incisions covered, c/d/i. ARSEN drain WNL. IV ABX infusing WNL. Pt tolerating clear liquid at this time.
--- NOTE | 2022-02-12 10:25 | NUR ---
Call light answered, pt reports 8/10 R abdominal pain, 6mg PRN morphine administered. Ice pack to incision. Pt states no other needs. at bedside.
--- NOTE | 2022-02-12 11:45 | NUR ---
Pt requests PRN morphine for 9/10 abd pain after coughing. Medicated with 6mg, no other needs at this time.
--- NOTE | 2022-02-12 12:10 | NUR ---
Pt calls and states vomiting- 8mg zofran administered at this time. Pt conversational with this RN and states no other needs. approx 50ml yellow/bile emesis noted.
--- NOTE | 2022-02-12 13:55 | NUR ---
PT RESTING IN BED, VISITING WITH HER SHLOMO. PT SAID HER PAIN WAS AT 7, I INFORMED HUBER ASKEW AND THAT PT WOULD LIKE AN ICE BAG. PT REQUESTED PRAYER, WILL FOLLOW NEEDED
--- NOTE | 2022-02-12 14:19 | NUR ---
Pt up and ambulated [address]. Pt had loose stool and emesis while in hallway. No dizziness at this time. Back to room and sitting up in chair, feet elevated. IVF infusing WNL. Pt on room air. Room tidied, linens changed. Pt personal belongings displayed in room for comfort.
[2022-02-12] MEDS ORDERED: VITAMIN D350 MCG PO (14:51)
[2022-02-12] MEDS ORDERED: MULTI-VITAMIN1 EACH PO (14:52)
[2022-02-12] MEDS ORDERED: VITAMIN E180 MG PO (14:55)
[2022-02-12] MEDS ORDERED: VITAMIN E180 M1 PO (14:55)
[2022-02-12] MEDS ORDERED: MAGNESIUM200 MG PO (14:56)
[2022-02-12] MEDS ORDERED: DEEP BLUE RELI TOP (15:01)
--- NOTE | 2022-02-12 15:14 | NUR ---
Pt medicated with PRN pain medication and moves back to bed with 1pa. Pt has another 300ml emesis at this time. Repositioned in bed with assistance. Pt states "tired and would like to nap", 2L O2 NC available per pt request for comfort while sleeping. IVF infusing. Call light in reach
--- NOTE | 2022-02-12 16:55 | NUR ---
Esme is awake and visiting with her , she states that "I am doing better." Still c/o being painful but states that we are working on it and it is improving. She also c/o nausea but is getting medication for the nausea per her report to me. States the nausea medicine is helping somewhat. Esme does state that she has ambulated and that helped with flatus "even though it was painful." She also states that the nurses are "taking really good care of me." Esme also reports that she sat up in the chair. She is working towards her goal to go home on discharge. Both Esme and her Reese denies questions at this time. Esme states that "we are still waiting for the pathology reports." Esme is aware that her follow-up appt is with Dr. Burgos. No needs expressed at this time.
--- NOTE | 2022-02-12 17:23 | NUR ---
Pt titrated to full dose percocet PRN. Pt states feeling nausea, medicated with zofran. Pt states that "zofran doesnt seem to work", will consult Dr merritt.
--- NOTE | 2022-02-12 18:03 | NUR ---
Attempted to call Dr Cervantes, no answer at this time
--- NOTE | 2022-02-12 18:21 | NUR ---
Call light answered, pt states continual 9/10 pain to RLQ, medicated with 6mg morphine. She states nauseated. Encouraged to go slow with clears. She is agreeable. ABD assessed- not further distended or firm. dressings C/D/I.
--- NOTE | 2022-02-12 19:31 | NUR ---
REPORT RECEIVED FROM HUBER ASCENCIO. pt RESTING IN BED WITH EYES CLOSED. BREATHING EQUAL AND UNLABORED. NO DISTRESS NOTED. CALL LIGHT IN REACH.
--- NOTE | 2022-02-12 22:00 | NUR ---
CALL LIGHT ANSWERED. pt REQUESTING TO AMBULATE IN HALLWAY. MEDICATED FOR 8-9/10 REPORTED PAIN IN ABDOMEN, LEFT AND RIGHT LOWER QUADRANTS. PRN TORADOL, MORPHINE ADMINISTERED. ASSESSMENT COMPLETE. VSS. SCRUGGS CARE COMPLETE. SMALL LIQUID GREEN SMEAR OF BM NOTED, ATTENDS CHANGED. pt ABLE TO TURN SIDE TO SIDE. SBA TO AMBULATE FULL LAP IN HALLWAY. 50 ML GREEN BILE EMESIS HALF WAY AROUND LAP. pt SITS IN WHEELCHAIR FOR FEW MINUTES AND COMPLETES LAP. NO COMPLAINTS OF NAUSEA WHEN BACK TO BED. SCDS ON. COOL WASH CLOTH PROVIDED. IVF INFUSING WNL. CALL LIGHT IN REACH.
--- NOTE | 2022-02-13 00:13 | NUR ---
CALL LIGHT ANSWERED. pt SLEEPING, AWOKEN BY IV PUMP ALARMING, DISTAL OCCLUSION. IV SITE ASSESSED, IVF INFUSING WNL. pt RATES PAIN 4-5/10 IN ABDOMEN "IT'S THE BEST ITS BEEN". PRN PAIN MEDICATION ADMINISTERED PO PER pt REQUEST. CLEAR ENSURE DRINK PROVIDED, pt TAKING SMALL SIPS. DENIES NAUSEA. CALL LIGHT IN REACH.
--- NOTE | 2022-02-13 02:29 | NUR ---
CALL LIGHT ANSWERED. pt STATES PAIN IN LLQ WOKE HER UP FROM SLEEP, RATES PAIN 5/10. PRN PO PAIN MEDICATION ADMINISTERED. pt FINISHED ONE FULL CLEAR ENSURE, DENIES NAUSEA. ADDITIONAL ENSURE AND ICE WATER PROVIDED. ASSESSMENT COMPLETE. ARSEN DRAIN STRIPPED AND EMPTIED, 10 MLS SANGUINOUS DRAINAGE. BOWEL TONES ACTIVE X 4, ABD SOFT, MIDLINE DRESSING CDI, LAP SITES X 2 CDI WITH STERI STRIPS. SCRUGGS DRAINING CLEAR YELLOW URINE. NEW BAG IVF INFUSING WNL. CALL LIGHT IN REACH. NEW ICE PACK PROVIDED AND IN PLACE ON ABD. SCDS ON.
--- NOTE | 2022-02-13 06:24 | NUR ---
pt RESTING IN BED AWAKE RN ENTERS ROOM, STATES "I SLEPT FOR A BIG CHUNK RIGHT THERE". RATES PAIN 5/10 IN ABDOMEN. NEW ICE PACK PROVIDED. PRN TORADOL ADMINISTERED. VSS. ARSEN DRAIN EMPTIED 5 MLS SANGUINOUS DRAINAGE. SCRUGGS EMPTIED. ICE WATER PROVIDED. CALL LIGHT IN REACH.
--- NOTE | 2022-02-13 06:25 | NUR ---
pt ABMULATED FULL LAP IN HALLWAY THIS SHIFT, EMESIS HALF WAY AROUND LAP, 100 MLS BILE. PAIN CONTROLLED WITH PO PERCOCET, PRN TORADOL AND PRN MORPHINE X 1. pt ABLE TO TOLERATE TWO CLEAR ENSURE DRINKS WITH PO MEDICATIONS. NO ADDITIONAL NAUSEA AFTER BOUT OF EMESIS. SCRUGGS DRAINING QS OUTPUT. SBA. IVF INFUSING WNL THROUGHOUT SHIFT. MIDLINE DRESSING AND LAP SITES X 2 CDI. ARSEN DRAIN WITH 25 MLS SANGUINOUS OUTPUT THIS SHIFT. USING CALL LIGHT APPROPRIATELY.
--- NOTE | 2022-02-13 08:03 | NUR ---
ambulated pt around unit pt up in chair for meal.
--- NOTE | 2022-02-13 09:00 | NUR ---
REPORT RECEIVED FROM NIGHT RN AND PT. CARE RESUMED. PT. IS ALERT AND ORIENTED TO ALL. SHE DENIES PAIN. MIDLINE DRESSING HAS A SMALL AMOUNT OF DRIED DRAINAGE UNDER THE OPSITE, BUT IS OTHERWISE CLEAN AND INTACT. STERISTRIPS ON LAP. SITES X2 ARE DRY AND INTACT. BOWEL TONES ACTIVE. CATHETER PATENT AND DRAINING CLEAR YELLOW URINE. IV SITE WNL AND FLUSHES. ARSEN DRAINING IS PATENT AND DRAINING RED FLUID. DISCUSSED AMBULATION, POC AND MEDS. LEFT RESTING WITH CALL LIGHT IN REACH.
--- NOTE | 2022-02-13 09:30 | NUR ---
PT. AMBULATED 1 LAP AROUND THE UNIT WITHOUT NAUSEA AND TOLERATED WELL.
--- NOTE | 2022-02-13 11:20 | NUR ---
PATIENT OUT WALKING IN THE MUÑIZ WITH . NO CHANGES TO DISCHARGE PLAN AT THIS TIME.
--- NOTE | 2022-02-13 11:49 | PATH ---
[facility] [address] [place], [place] [address] Signed SPECIMEN(S): A LIVER NEEDLE BIOPSY SPECIMEN(S): B PELVIC MASS/BLADDER, LT COLON, OMEN. RT ADNEXA SPECIMEN SOURCE: A. LIVER NEEDLE BIOPSY B. PELVIC MASS/BLADDER, LT COLON, OMEN. RT ADNEXA CLINICAL HISTORY: History of colon CA; probable metastasis. FINAL PATHOLOGIC DIAGNOSIS: A. Liver nodule, needle core biopsy: - Metastatic carcinoma. B. Pelvic mass with adherent bladder, partial left colon, right adnexa and omentum, en bloc resection: - Adenocarcinoma, presumed metastasis of colorectal origin. See comment. - Tumor is present in soft tissue, with invasion into adjacent bladder wall, serosal aspect of left colon and omentum. - Largest metastatic focus measures 11.5 cm greatest dimension. - Histologic tumor type: Adenocarcinoma with mucinous features. - Histologic grade: G2-G3 (moderate to poorly differentiated). - Surgical margins: - All inked surgical stapled margins are negative for tumor involvement (tumor extends to within 0.2 cm of inked mesenteric margin). - Vascular root margin is notable for prominent lymphatic invasion, but no large vessel invasion. - Treatment effect: Not applicable. - Lymphovascular invasion: Present and extensive. - Perineural invasion: Absent. - Tumor deposits (discontinuous extramural extension): Present, three nodules detected. - MSI testing: Available upon request. See comment. - BRAF, KRAS, and NRAS: Available upon request. - Additional findings: - Benign ovary and fallopian tube with fibrous serosal adhesions, negative for tumor involvement. - Lymph nodes: - Total lymph nodes examined: 8. - Number of lymph nodes involved by tumor: 5. 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 At that time, the tumor was staged as a pT4a pN2b MX (stage IIIc). The current tumor is presumed to be a metastasis from the original right colon carcinoma, as it demonstrates focal mucinous differentiation. Bladder or colonic mucosa is not involved by tumor. It is unclear whether MSI testing or other ancillary studies were performed on the patient's original tumor. If ancillary testing on the current specimen is clinically indicated, please fax a testing request to with appropriate authorization, if applicable. As part of [facility] Quality Improvement Program, this case was reviewed by another member of our pathology staff. AMB:JOELP:emparam:C1NR MICROSCOPIC EXAMINATION: Histologic sections of all submitted blocks are examined by light microscopy. These findings, together with the gross examination, support the pathologic diagnosis. GROSS DESCRIPTION: Two specimens are received in two containers, labeled "GM." A. The specimen, labeled "GM, A," and designated on the requisition "nodule of liver between right and left lobe," is received in formalin and consists of gray soft tissue (1.2 cm in length x 0.1 cm in diameter). The specimen is inked black and submitted entirely in cassette (A1). B. The specimen, labeled "GM, B," and designated on the requisition "pelvic mass with portion of bladder, left colon and omentum, right adnexa suture arvizu portion of bladder," is received in formalin and consists of a previously opened segment of large bowel (15.5 cm in length and ranging in circumference from 4.0-5.8 cm) with attached mesenteric fat extending up to 10 cm, attached left (3.5 cm in length x 1.0 cm in diameter) and left ovary (2.2 x 1.0 x 0.8 cm), a portion of omentum (23.0 x 6.4 x 2.3 cm) and a portion of stapled bladder (7.0 x 6.5 x 6.0 cm). There is a firm nodular area of soft tissue adjacent to the attached bladder and large bowel, causing puckering of the bowel serosa. The soft tissue surrounding firm nodular area, the outer surface of the bladder is inked blue. The stapled margin of the bladder is inked black. The specimen is sectioned to reveal an ill-defined, white-gray to pink-gray, ill-defined, firm nodular mass (11.5 x 6.0 x 6.4 cm) throughout the soft tissue PATIENT NAME: SHANNON PEÑA PATHOLOGY DATE OF : 59 REPORT #: [id number] PHYSICIAN: LEE LAMB PCP: ARYAN CARRION PAC REPORT IS CONFIDENTIAL AND NOT TO BE RELEASED WITHOUT AUTHORIZATION [address] [address] Signed that grossly involves the omentum, bladder wall, and large bowel. The mass does not grossly involve the mucosa of the large bowel. The mass abuts the blue-inked, roughened soft tissue/mesenteric margin. The mass is located 0.5 cm from the stapled bladder margin, 3.0 cm from the adnexa, 4.3 cm the distal bowel margin, 8.5 cm from the vascular root of the large bowel, 9.5 cm from the proximal bowel margin. There are additional white-gray, firm nodules throughout the mesentery and omentum that range in size from 1.0-3.0 cm in greatest dimension. The distal bowel margin is inked green, and the proximal bowel margin is inked orange. The remainder of the bowel shows pink-gray, smooth serosa with pink-gray, unremarkable mucosal folds. The fallopian tube is serially sectioned to reveal a pink-gray, unremarkable cut surface. The ovary is white-gray and sectioned to reveal a white-gray to hemorrhagic cut surface. The remaining adipose is palpated and 8 possible lymph nodes are identified (ranging in size from 0.3-1.4 cm in greatest dimension). The lymph nodes are submitted entirely. Reconditioner sections are submitted as follows: (B1-B3) Mass to bladder wall with bladder margin (B4-B5) Mass to bowel wall and mesenteric margin (B6-B7) Mass to omentum (B8-B9) Additional mass to mesenteric margin (B10) Bowel margins with adjacent bowel wall (B11) Uninvolved bowel (B12) Vascular root with separate 2.2 cm, white-gray nodule (B13) Entire fallopian tube (B14) Entire ovary (B15) Additional separate nodules (B16) 5 possible lymph nodes, intact (B17) 2 possible lymph nodes, one intact, one inked blue and bisected (B18) 1 possible lymph node, trisected AC (under the direct supervision of a pathologist) The Gross Description was prepared using a voice recognition system. The report was reviewed for accuracy; however, sound-alike word errors, addition and/or deletions may occur. If there is any question about this report, please contact Client Services. PERFORMING LABORATORY: PATIENT NAME: SHANNON PEÑA PATHOLOGY DATE OF : 59 REPORT #: [id number] PHYSICIAN: LEE LAMB PCP: ARAYN CARRION PAC REPORT IS CONFIDENTIAL AND NOT TO BE RELEASED WITHOUT AUTHORIZATION [address] [address] Signed The technical component was performed by [facility], [address] [place] [id number] (CLIA# [id number]). Professional interpretation was performed by [facility], [address] [address] (CLIA#: [id number]). Diagnostician: Angelica Rajput MD Pathologist Electronically Signed 02/13/2022 Copies: ~ PATIENT NAME: SHANNON PEÑA PATHOLOGY DATE OF : 59 REPORT #: [id number] PHYSICIAN: LEE LAMB PCP: ARYAN CARRION PAC REPORT IS CONFIDENTIAL AND NOT TO BE RELEASED WITHOUT AUTHORIZATION
--- NOTE | 2022-02-13 14:05 | NUR ---
PT RESTING IN RM-FINALLY ABLE TO KEEP ENSURE DOWN. PT DID SLEEP 6 HRS LAST NIGHT WHICH SHE REALLY ENJOYED. LEFT G.POST, BLESSING AND WILL FOLLOW
--- NOTE | 2022-02-13 14:36 | NUR ---
ASSESSMENT COMPLETED. PT. C/O ABDOMINAL TENDERNESS WITH AMBULATION. ADMIN SCHEDULED PAIN MED AND IVF CHANGED. ARSEN DRAIN EMPTIED OF 40ML OF SEROSANGUINOUS FLUID. PT. LEFT RESTING WITH CALL LIGHT IN REACH.
--- NOTE | 2022-02-13 14:48 | NUR ---
MET WITH PATIENT TO CLARIFY HER FOOD ALLERGIES. SHE HAS AN ANAPHYLACTIC REACTION IF SHE CONSUMES SUNFLOWER OIL OR CANOLA OIL. SHE IS ALLERGIC TO THE EMILI PLANT WHEN IT IS BLOOMING, NOT THE HERB. SHE CAN HAVE SPRING MIX AND CABBAGE, BUT NO OTHER LETTUCES. SHE LIKES THE MIXED WEST ENSURE CLEAR AND IS ABLE TO KEEP IT DOWN. I HELPED HER PICK SOME SOFT FOODS FOR DINNER. A MENU WILL COME UP ON HER DINNER TRAY. THIS RD WILL WORK WITH THE DIETARY STAFF TO REVIEW INGREDIENT LISTS AND CONTINUE TO WORK WITH PATIENT'S PREFERENCES WHILE SHE IS HERE.
--- NOTE | 2022-02-13 17:10 | NUR ---
THIS RN TO ROOM TO CHECK ON PT PER PTS PRIMARY RN'S REQUEST. PT REQUESTS WATER AND ANOTHER CLEAR ENSURE, PROVIDED. PT REPORTS 9/10 ACHING BURNING PAIN "IN MY STOMACH." NOTED THAT PTS TYLENOL PREVENTS ADDITONAL PERCOCET TO BE GIVEN. DR. OAKES CALLED AND STATES TO DC PEROCET AND PLACE ORDER FOR OXYCODONE 10MG Q6PRN, ORDERS ENTERED AND REPEAT BACK PERFORMED. MEDICATION GIVEN (SEE MAR). PT RESTING IN BED, NO ADDITIONAL REQUESTS OR COMPLAINTS. CALL LIGHT WITHIN REACH. BED RAILS UP. PTS PRIMARY RN UPDATED.
--- NOTE | 2022-02-13 18:18 | NUR ---
PT. USED CALL LIGHT APPROPRIATELY FOR ASSISTANCE OFF OF THE BEDPAN. PT. WAS TEARFUL AND ASKED IF IT WILL BE NORMAL TO HAVE LOOSE STOOL SUDDENLY. DISCUSSED WHAT TO EXPECT AFTER SURGERY. PT. STATES SHE IS STILL VERY PAINFUL AFTER TAKING OXYCODONE RECENTLY. DISCUSSED PAIN MANAGEMENT AND GIVEN ICE PACK. PT. TOLD TO CALL THE NURSE IF HER PAIN IS NOT BETTER CONTROLLED AFTER 15-30 MINUTES. PATIENT AGREED. WILL CONTINUE TO MONITOR.
--- NOTE | 2022-02-13 18:59 | NUR ---
ROUNDING ON PT. SHE IS TEARFUL AND C/O 8/10 ABDOMINAL PAIN. DRESSING REMAINS UNCHANGED. BOWEL TONES ACTIVE AND ABDOMEN SOFT. MD UPDATED AND ORDER GIVEN FOR MORPHINE.
--- NOTE | 2022-02-13 20:05 | NUR ---
PT ASSISTED TO THE TOILET FOR BM, SBA WITH IV POLE, BACK TO BED, SCDS IN PLACE, VSS, NO FURTHER NEEDS AT THIS TIME
--- NOTE | 2022-02-13 21:11 | NUR ---
Pt back in bed, on room air, placed on O2 2LNC at this time, crying, labile mood, reassured, will do assessment at her requests when she gets medicated after 2300. IVF infusing w/o problems LFA. f/c patent. tolerating liquids well
--- NOTE | 2022-02-13 22:01 | NUR ---
O2 2LNC her requests at HS, eyes closed, no distress. call light and fluids at bedside
--- NOTE | 2022-02-13 23:38 | NUR ---
pt resting on left side, iv site LH, infiltrated, tip intact, dc'd. will restart. awakes easily, c/o 5/10 abd pain. dressing with old drainage, dorinda w ss drainage. teaching done. cooperative. hayder, tender abd stated passing gas. On room air, lungs clear bilat, turns and repositions self in bed, scds in place. tolerating liquids well, no emesis, f/c patent. pleasant and cooperative
--- NOTE | 2022-02-14 01:55 | NUR ---
awakes easily, on room air, goes back to sleep. Larm elevated in pillows, ivf infusing. turns and respositions self in bed, f/c patent. call light and fluids t bedside
--- NOTE | 2022-02-14 05:47 | NUR ---
pt on room air, uses 2lnc at hs only, did not used more than 1/2 hour last night. On room air, lungs clear bilat. midline abd incision with dressing in place covered with opsite. abd soft, hayder, stated passing gas. ARSEN low abd in place. w ss drainage. care of ARSEN explained to pt, cooperative, questions asked and answered. has been medicated with scheduled Tylenol and oxycodone with good pain control. Very labile, crying and anxious at begining of shift. reassured multiple times, efforts praised, calmed down. f/c patent, not chronic, Pt to be dc with f/c home due to her surgery. patent, draining clear yellow urine, care done. Uses call light
--- NOTE | 2022-02-14 09:16 | NUR ---
PT IS LAYING IN BED. I&O AND VS CHARTED. PT OFFERED SHOWER. CALL LIGHT WITHIN REACH NO FURTHER TASKS AT THIS TIME
--- NOTE | 2022-02-14 10:05 | NUR ---
REPORT RECEIVED FROM NIGHT RN AND PT. CARE RESUMED. PT. IS ALERT AND ORIENTED TO ALL. SHE WAS TEARFUL AND STATES SHE HAD A TERRIBLE NIGHT. SHE STATES SHE ASKED SEVERAL TIMES FOR MORPHINE DUE TO SHARP PAIN, BUT WAS TOLD SHE COULD NOT HAVE IT. PT. C/O 06/16 PAIN.ADMIN MORPHINE AND REASSURED. MIDLINE DRESSING INTACT AND DRY WITH A SMALL AMOUNT OF DRIED DRAINAGE AT THE BOTTOM OF OPSITE. ARSEN DRAIN EMPTIED OF 15ML SEROSANGUINOUS FLUID. STERISTRIPS AT LAP SITES INTACT AND DRY. BOWEL TONES ACTIVE THROUGHOUT. PT. C/O OF MILD PAIN AT IV SITE. IV FLUSHES WELL AND POT ANNEALER IN TO CHECK ON IT. ASSESSMENT COMPLETED. PT. LEFT RESTING WITH CALL LIGHT IN REACH.
--- NOTE | 2022-02-14 10:52 | NUR ---
PT GIVEN BED BATH. CALL LIGHT WITHIN REACH NO FURTHER TASKS
--- NOTE | 2022-02-14 11:34 | NUR ---
Admin Morphine 4mg IV for reports of 10/10 right lower abd/bladder pain.
--- NOTE | 2022-02-14 12:02 | NUR ---
CONNECTED WITH PT SHE AMBULATED IN MUÑIZ WITH RN ERROL AND SHLOMO. GAVE ENCOURAGEMENT, WILL CONTINUE TO FOLLOW
--- NOTE | 2022-02-14 13:12 | NUR ---
RN PROVIDED PRN PAIN MEDICATION FOR 8/10 PAIN IN ABD. SCD BACK IN PLACE. DENIES FURTHER NEEDS, CALL LIGHT IN REACH.
--- NOTE | 2022-02-14 19:20 | NUR ---
REPORT RECEIVED . PT RATES HER PAIN A 4/10 AND STATES SHE IS COMFORTABLE . WILL CALL FOR ANY NEEDS.
--- NOTE | 2022-02-14 23:00 | NUR ---
PT APPEAR STO BE SLEEPING COFORABLY. DID NOT DISTURB HER. CALL LIGHT IN REACH
--- NOTE | 2022-02-15 06:52 | NUR ---
PT HAS HAD HER PAIN WELL CONTROLLED WITH A TOTAL OF 16 MG PO DILAUDID. RATES HER PAIN 4/10 THIS AM. SHE HAS BEEN UP TO THE BATHROOM AND HAD A VERY SMALL LOOSE BROWN STOOL WITH OLD BLOOD NOTED. SHE FELT HER BACK WAS ITCHY. BACK WAS WASHED , DRIED, LOTION APPLIED AND BED LINEN CHANGED. PT STATED RELIEF OF ITCHING.
--- NOTE | 2022-02-15 08:15 | NUR ---
REPORT RECEIVED FROM NIGHT RN AND PT. CARE RESUMED. PT. IS ALERT AND ORIENTED. DENIES PAIN AT THIS TIME. ASSESSENT COMPLETED. ABDOMINAL DRESSING C.D.I. ARSEN DRAIN PATENT. STERI STRIPS ON LAP. SITES INTACT AND DRY. DISCUSSED PAIN MANAGEMENT AND POC. LEFT RESTING WITH CALL LIGHT IN REACH.
--- NOTE | 2022-02-15 10:59 | OR ---
[facility] [address], [place] [address] Signed DATE OF OPERATION: 02/11/2022 SURGEON: Torres Oakes MD PREOPERATIVE DIAGNOSES: 1. Probable recurrent colon cancer with suspicious metastasis to liver and low pelvic mass and omental involvement. 2. Asymptomatic right. 3. Persistent right posterior thoracic and right pelvic pain. Postoperative diagnosis dense malignant neoplasm of the pelvis with involvement of the transverse colon, omentum with direct extension to the bladder and left colon (without penetration into lumen) and extension to deep pelvic lymph nodes. 4. Hepatic nodule consistent with hepatic metastasis. PROCEDURES: 1. Laparoscopy with laparoscopic biopsy of suspicious lesion on dome of liver at junction of right and left hepatic lobes. 2. Laparotomy with excision of large pelvic neoplasm including omentectomy, partial bladder resection and distal left colectomy with site with into and coloproctostomy. 3. Excision of right and left adnexal structures in continuity with neoplasm. ANESTHESIA: General endotracheal, Jerry Gabrielle, USER ACCEPTANCE TESTER and postoperative bilateral TAP blocks. INDICATION: This 66-year-old white woman is a patient of Aryan Carrion and well known to me from the past having undergone extended right colectomy for stage III colon cancer in 2016. She has had surveillance colonoscopies and occasional excision of polyps. She underwent postoperative chemotherapy as she had 06/03 lymph nodes positive for metastatic disease. This was under the direction of Dr. Lemus. She had been doing well with no evidence of recurrent disease until recently where she was having complaints of right flank and some right low pelvis pain. 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 She underwent CT under the direction of Aryan Carrion which showed no evidence of nephrolithiasis, but did confirm a 3.5 to 4 cm right hepatic lobe metastatic lesion and omental abnormality suggestive of metastatic disease as well as an amorphous pelvic mass, all of this highly consistent with recurrent colon cancer. CA-125, CA-19-9, and CEA levels were obtained and were all normal. Notably, her initial and presenting colon cancer of the right colon had a normal CEA as well. Electronically Signed By: TORRES OAKES MD 02/15/22 1059 PATIENT NAME: SHANNON PEÑA OPERATIVE REPORT DATE OF : 59 REPORT #: [id number] PHYSICIAN: TORRES OAKES MD PCP: ARYAN CARRION PAC REPORT IS CONFIDENTIAL AND NOT TO BE RELEASED WITHOUT AUTHORIZATION [facility] [address], [place] [address] Signed She has seen Dr. Lemus about all of this and I have recommended laparoscopy to better characterize the extent of disease and as appropriate laparotomy to remedy any bulky tumor that may be accounting for her symptoms. It is unlikely that complete cure could be afforded if this does represent metastatic recurrence, though significant and beneficial palliation could certainly be undertaken. The patient and her understand the ramifications of her findings currently as well as the risk of current operation which include but are not limited to bleeding, infection, need for bowel resection or other resection for palliative intent and understanding these risks, they wished to proceed. FINDINGS: On laparoscopy, she was found to have no evidence of ascites or carcinomatosis. There was some chronic inflammatory change in the region of the ileal transverse colon anastomosis, but no evidence of actual neoplasm in that area. The liver itself showed mild fatty infiltration. There was a nodule in the dome of the liver at the exact border between the right and left lobes. This was biopsied as it was highly suspicious for malignancy. In the lower abdomen, one could see adherence of small bowel to the anterior abdominal wall as well as neoplastic change with dense omental caking in the right mid low pelvis. On laparotomy, the dense mass appeared to be either a ovarian remnant on the right side or other malignant process which was completely contiguous with the upper 3rd of the bladder posteriorly and superiorly as well as a segment of colon ultimately found to be the distal descending and proximal sigmoid colon as well as the big sandy right pelvic structures. Extension of dense tumor into the low pelvis bilaterally was noted and was resected in continuity. Resection of the sigmoid colon showed suspicious adenopathy within the mesentery of the colon. Wide resection was undertaken and end to end coloproctostomy ultimately undertaken. The operation was prolonged, complicated, and difficult lasting nearly 4 hours. At conclusion, there remains hepatic metastatic disease, most likely possibly some mesenteric lymph node involvement in the upper most portion in the region of the confluence of the superior mesenteric artery and no evidence of residual pelvic disease. DESCRIPTION OF PROCEDURE: The patient was brought to the operating room, given a general endotracheal anesthetic. Preoperative antibiotic cefoxitin was given and a full bowel prep including antibiotics was undertaken preoperatively. After satisfactory general endotracheal anesthesia, the abdomen was palpated showing no palpable mass, likely related to her thick abdominal wall pannus. A Shelton catheter was placed without incident. The abdomen was prepared with a chlorhexidine solution and draped sterilely. An infraumbilical incision was made Electronically Signed By: TORRES OAKES MD 02/15/22 1059 PATIENT NAME: SHANNON PEÑA BARTOLOME OPERATIVE REPORT DATE OF : 59 REPORT #: [id number] PHYSICIAN: TORRES OAKES MD PCP: ARYAN CARRION PAC REPORT IS CONFIDENTIAL AND NOT TO BE RELEASED WITHOUT AUTHORIZATION [facility] [address], [place] [address] Signed adjacent to her previous midline laparotomy incision. The abdomen was entered without problem using an open Wanda cannula technique. Pneumoperitoneum was achieved to a level of 14 mmHg of carbon dioxide gas. Intra-abdominal inspection showed no sign of ascites or carcinomatosis. Chronic inflammatory changes were noted in the ileotransverse colon anastomotic area. Examination of the liver showed a suspicious nodule on the dome. In keeping with avoidance of extensive laparotomy incision, biopsy of that lesion was deemed appropriate from a laparoscopic approach. A 5 mm right upper abdominal trocar was placed to allow for cautery device. Under direct visualization, a needle were passed in the right upper quadrant and situated over the nodule itself. A single biopsy was obtained. The specimen was found to be quite good. Cautery was used to secure the biopsy site. There was no sign of excessive bleeding. Examination of the lower abdomen undertaken showed a dense mass which had incorporated omentum from the transverse colon. There was an apparent desmoplastic response of small bowel to the anterior abdominal wall and a very dense and immobile mass in the low pelvis, likely emanating from the right adnexal site. Laparoscopic resection of this would be quite unlikely and therefore, conversion to a low midline laparotomy incision was undertaken. The laparoscope was removed and the trocar site in the upper abdomen is found to be hemostatic. A low midline incision was made incorporating previous laparotomy incision. Dissection was carried through the thick subcutaneous pannus with electrocautery. Mindful of the process in the pelvis and right lower abdomen. Electrocautery was used to free the bowel loop segment from the anterior abdominal wall, this did not represent a malignant neoplasm at all as it turns out. The dense mass in the pelvis, however, was quite obviously malignant. A Bookwalter retractor was affixed to the table. Palpation of the mass showed it to be contiguous with the low pelvis anteriorly and the right adnexal area as well. Using electrocautery and mindful of important structures in the region, peritoneum was incised and dissection undertaken. Extension of the tumor laterally into what appeared to be the inguinal canal areas was demonstrated and using electrocautery with wide resection. These areas were allowed to maintain contiguous with the offending mass. The omentum was quite involved extending to this area. It was resected completely in all areas that were suspicious up to the transverse colon. It appeared that the mass was contiguous initially with the rectum and dissection was undertaken in the space of Retzius. It was later freed completely and the area that was variably considered rectum versus dome of bladder was more fully defined. So as to ascertain this more clearly, the bladder was filled with saline, confirming that the segment that was dissected free in continuity with the tumor was in fact the dome of the bladder. The tumor was densely adherent to it and peeling it away would be contraindicated. A segment of bladder was excised with an 80 mm JESIKA stapling device, it from the big sandy bladder itself. Electronically Signed By: TORRES OAKES MD 02/15/22 1059 PATIENT NAME: SHANNON PEÑA OPERATIVE REPORT DATE OF : 59 REPORT #: [id number] PHYSICIAN: TORRES OAKES MD PCP: ARYAN CARRION PAC REPORT IS CONFIDENTIAL AND NOT TO BE RELEASED WITHOUT AUTHORIZATION [address] [address] Signed Further dissection showed the lesion now freed with omentum in continuity as well as dome of the bladder and the right adnexal structures contiguous with it as well. These were dissected free laterally securing the infundibulopelvic ligament and fallopian tube area and ultimately ligating with 0 silk ties. Similar dissection was undertaken on the left side. The infundibulopelvic ligament and round ligament were secured with clamps, divided and secured with 0 silk ties as well. The tumor now was largely free from the pelvis and found to be contiguous with the segment of colon. This was essentially in the distal descending and proximal sigmoid colon. A dense mass is unlikely actually penetrating to the lumen of the colon, but there would be no of this lesion from the colon by any means in an effective way and on that basis, partial colectomy was then performed. The mesentery supplying the area in question of the sigmoid and left colon was scored with electrocautery in the mesenteric pedicles secured with the tonsil clamps and secured with 0 silk ties doubly applied. Dissection proximally to the root of the mesentery showed suspicious adenopathy in the mesentery which extended cephalad. Dissection was undertaken deep and superior as far as possible. Further dissection proximally was deemed inadvisable as the proximity to the superior mesenteric artery was quite likely. Heavy clamps were applied across the vascular supply in this area and 0 silk suture ligature used to secure those pedicles. At this point, the neoplastic process was completely freed. The JESIKA stapling device was used to transect the mid descending colon as well as the distal sigmoid colon and the specimen was explanted from the abdomen. Irrigation was undertaken. Small clips were used for hemostasis in the pelvis as appropriate during the course of dissection. Photographs were taken. Coloproctostomy was then performed in an end-to-end technique with interrupted 3-0 silk sutures and double-layer technique. The mesenteric defect was secured with interrupted 3-0 silk sutures so as to avoid postoperative herniation. The abdomen was copiously irrigated with warm saline solution. Tisseel fibrin glue was applied with an aerosol delivery device in the low pelvis after securing complete hemostasis in the area. Consideration was made for over-sewing the staple line of the bladder, but was deemed as the staple line was quite secure indeed. Shelton catheter remained in place and it could be palpated in the depths of the pelvis. Through a left lower quadrant incision, a 7 mm flat Jac drain was placed in the depths of the pelvis. The remaining abdominal contents were placed to natural anatomic configuration. The end-to-end coloproctostomy was found to be viable and complete hemostasis and watertight closure. Attention was turned towards closure. The midline fascia was reapproximated with running bidirectional #1 PDS suture. The subcutaneous tissue was irrigated copiously and the skin closed with interrupted 3-0 Vicryl. Steri-Strips were applied as was an Electronically Signed By: TORRES OAKES MD 02/15/22 1059 PATIENT NAME: SHANNON PEÑA OPERATIVE REPORT DATE OF : 59 REPORT #: [id number] PHYSICIAN: TORRES OAKES MD PCP: ARYAN CARRION PAC REPORT IS CONFIDENTIAL AND NOT TO BE RELEASED WITHOUT AUTHORIZATION [address] [address] Signed Acticoat dressing. The drain was attached to bulb suction. TAP blocks were performed by the wood gluer at conclusion of the procedure. The patient tolerated procedure well. Blood loss was less than 100 mL. Sponge, needle and instrument counts reported as correct x3. The operation was prolonged, complicated, and difficult on the basis of its extent to involvement of surrounding organs. Urine was evaluated and found to be without sign of blood, although concentrated measured about 100 mL in aggregate. Torres Oakes MD /MODL /[id number] cc: MD Dr. Aryan Villavicencio Copies: NAJMA LEMUS MD ~ Electronically Signed By: TORRES OAKES MD 02/15/22 1059 PATIENT NAME: SHANNON PEÑA OPERATIVE REPORT DATE OF : 59 REPORT #: [id number] PHYSICIAN: TORRES OAKES MD PCP: ARYAN CARRION PAC REPORT IS CONFIDENTIAL AND NOT TO BE RELEASED WITHOUT AUTHORIZATION
--- NOTE | 2022-02-15 11:00 | NUR ---
PT. C/O 5/10 ABDOMINAL PAIN THAT WAS WORSENING. REQUESTED MORPHINE PRIOR TO AMBULATING AROUND THE UNIT. PAIN ASSEMBLER FOR PULLER OVER MACHINE. FAMILY IN THE ROOM VISITING. IV SALINE LOCKED PER ORDERED.
--- NOTE | 2022-02-15 11:48 | NUR ---
PT. AMBULATED 3 LAPS AROUND THE UNIT WITH FAMILY AND TOLERATED WELL.
--- NOTE | 2022-02-15 12:24 | NUR ---
THIS RN TO ROOM TO CHECK ON PT. PT VISITING WITH GRANDCHILDREN. PT REPORTS SHE IS READY TO HAVE DRESSING OVER ABDOMINAL INCISION REMOVED PER MD ORDER. ACTICOAT DRESSING REMOVED, STERI STRIPS UNDEDER ACITCOAT DRESSING REMAIN INTACT WITH EDGES WELL APROXIMATED. OLD RED DRY DRAINGE NOTED, NO FRESH DRAINAGE NOTED. PT TOLERATED REMOVAL OF DRESSING WELL. REPORTS 4/10 PAIN AND REQUESTS DILAUDID AT THIS TIME "BEFORE I TAKE MY SHOWER." PT REMAINS UP TO CHAIR AT THIS TIME, EATING LUNCH. CALL LIGHT WITHIN REACH. NO ADDITIONAL REQUESTS OR COMPLAINTS. PTS PRIMARY RN UPDATED.
--- NOTE | 2022-02-15 14:05 | NUR ---
RIGHT ABDOMEN DRESSING REMOVED PER ORDERS AND INCISION SITE HAS INTACT STERISTRIPS THAT ARE DRY. ARSEN DRAIN PATENT. SHE DENIES PAIN OR NAUSEA AND APPETITE HAS IMPROVED AT LUNCH. ASSESSMENT COMPLETED AND DISCUSSED SHOWERING. LEFT RESTING WITH CALL LIGHT IN REACH.
--- NOTE | 2022-02-15 14:26 | NUR ---
MEDICATION DUE. THIS RN TO ROOM, PT GETTING UP FROM CHAIR FOR SHOWER WITH COLLECTIONS CURATOR'S (STAN AND RANJEET). PT REPORTS 3/10 PAIN IN ABDOMEN THAT IS WELL CONTROLLED. SCHEDULED TYELNOL GIVEN. PTS DENIES ADDITIONAL REQUESTS OR COMPLAINTS. CALL LIGHT WITHIN REACH. COLLECTIONS CURATOR'S AT BEDSIDE.
--- NOTE | 2022-02-15 16:17 | NUR ---
PT. IN THE SHOWER WITH HR ANALYST
--- NOTE | 2022-02-15 19:25 | NUR ---
BEDSIDE REPORT FORM ROSETTE RN, PT TEARFUL REPORTS PAIN IS HIGH, PT REQUEST MORPHINE FOR [id number] AT THIS TIME.WILL PLAN TO ADMINISTER.
--- NOTE | 2022-02-15 19:57 | NUR ---
HS ASSESSMENT AND V/S AND I/O COMPLETE AT THIS TIME, SPENT TIME IN ROOM TO VISIT WITH PT ABOUT DX, FAMILY VISITS TODAY AND PLANS FOR THIS SUMMER, PT SMILING THIS RN LEFT ROOM, WARM BLANKET AND NEW GOWN ALSO PROVIDE SHE REPORTS SHE SPILT ICE ON GOWN EARLIER. NO OTHER CONCERNS OR REQUESTS, DISCUSSED WITH PT PAIN PLAN FOR THIS SHIFT AND IMPORTANCE OF HER CALLING WHEN SHE FEELS HER PAIN INCREASE. PT IS ALERT AND ORIENTED.
--- NOTE | 2022-02-15 22:15 | NUR ---
PT CALLED NURSES STATION TO REQUEST ASSISTANCE TO BATHROOM, THIS RN INTO PT ROOM, PT SAID SHE FEELS LIKE SHE MIGHT BE ABLE TO HAVE BM, PT STANDBY ASSIST TO BATHROOM, SHE REPORTS PAIN IS INCREASED SCHEDULED TYLENOL ADMINISTERED AND 4MG PO DILAUDID PRN ADMINISTERED. PT REPORTS FALSE ALARM ON BM, BACK TO BED SCDS ON LEGS, NO OTHER REQUESTS OR CONCERNS. FRESH ICE WATER PROVIDED.
--- NOTE | 2022-02-16 05:02 | NUR ---
PT HAS SLEPT WELL OVER SHIFT, SHE HAS REQUESTED PAIN COVERAGE TWICE. SHE HAS NOT HAD BM THIS SHIFT, SHE HAS PASSES GAS. SHE HAS SCRUGGS CATH IN PLACE TO BE LEFT IN PLACE. SHE IS PRODUCING QUANTITY SUFFICIENT URINE OUT CLEAR DILUTE URINE, NEAR COLORLESS. NO NEW CONCERNS OVER SHIFT.
--- NOTE | 2022-02-16 05:56 | NUR ---
pt up to bathroom to have bm. she reports pain 6/10, 1000mg po scheduled, and 4mg dilaudid po prn. no new concerns this am.
--- NOTE | 2022-02-16 06:13 | NUR ---
PT HAD MED. FORMED BROWN BM THIS AM WITH SCANT AMOUNT OF DULL RED BLOOD NOTED
--- NOTE | 2022-02-16 07:29 | NUR ---
REPORT RECEIVED FROM HUBER HO. PT RESTING IN BED ON BACK WITH HEAD OF BED ELEVATED TO 20 DEGREES. PT REPORTS 2/ PAIN STATING "IT'S THE BEST IT'S BEEN." PT DENIES NEED FOR PAIN MEDICAITON. REQUESTS TO BRUSH HER TEETH. SUPPLIES PROVIDED. PT DENIES ADDITIONAL REQUESTS OR COMPLAINTS. CALL LIGHT WITHIN REACH. BED RAILS UP.
--- NOTE | 2022-02-16 09:22 | NUR ---
In room to adminster scheduled medications. Pt resting in bed after eating breakfast. ABD visualized, soft and nontender at this time, midline incision c/d/i, dorinda drain and dressing WNL. Pt reports tolerable level of pain at this time and declines any PRN meds, discussed time of next available meds. Pt on room air, no needs at this time.
--- NOTE | 2022-02-16 10:11 | NUR ---
MORNING ASSESSMENT AND MEDICATION DUE. MORNING MEDICATIONS GIVEN BY HUBER ASCENCIO. PT RESTING IN BED. PT HAS OXGYEN IN PLACE AT 2L O2 BY PA REPORTING "I LIKE TO USE IT WHEN I SLEEP." PT REPORTS 3/10 PAIN IN ABDOMEN THAT IS TOLERABLE BUT STATES SHE WOULD LIKE PAIN MEDICATION TO "STAY AHEAD OF IT." SEE MAR FOR MEDICATION GIVEN. IV ASSESSED, WNL. FLUSHED AND SALINE LOCKED PER PROTOCOL, ALCOHOL CAP APPLIED. PT ALERT AND OREINTED TO ALL. LUNG SOUNDS CLEAR. HEART TONES REGULAR. BOWEL TONES ACTIVE. ABODMEN SORE WITH PALPATION. PT REPORTS PASSING GAS. BOWEL MOVEMENTS NOTED. MIDLINE INCISION REMAINS WNL WITH EDGES WELL APROXIMATED AND STERI STRIPS IN PLACE. NO NEW DRAINGE NOTED. SCRUGGS CATHETER REMAINS IN PLACE, WNL WITH CLEAR YELLOW URINE NOTED. PT VERBLAIZE UNDERSTANDING OF CATEHTER CARE A ARSEN DRAIN CARE. ARSEN DRAIN DRAIING LIGHT RED FLUID IN SMALL AMOUNTS. LAPAROSCOPIC SITES REMAIN WNL, STERI STRIPS INTACT. EXTENSIVE EDUCATION DONE REGARDING TO SCRUGGS CATHETER AND ARSEN DRAIN. PT DEMONSTRATES AND VERBALIZES UNDERSTANDING. NO ADDITIONAL REQUSTS OR COMPLAINTS. CALL LIGHT WITHIN REACH. BED RAILS UP.
--- NOTE | 2022-02-16 11:32 | NUR ---
PK RN TO ROOM WITH DR. OAKES FOR ROUNDS. ARSEN DRAIN REMOVED BY DR. OAKES. BANDAID APPLIED. PT TOLERATED PROCEEDURE WELL. PT REPORTS 3/10 ACHING PAIN IN ABDOMEN THAT IS WELL CONTROLLED. ICE WATER REFILLED, SNACK PROVIDED. PT REPORTS FAMILY WILL BE INTO VISIT LATER TODAY. PT DENIES ADDITIONAL REQUESTS OR CMPLAINTS. CALL LIGHT WITHIN REACH. BED RAILS UP.
--- NOTE | 2022-02-16 12:27 | NUR ---
THIS RN TO ROOM TO CHECK ON PT. PT WATCHING [facility]EHOVAH'S WITNESS SERVICE FROM HOME THROUGH TABLET. PT DENIES REQUESTS OR COMPLAINTS. CALL LIGHT WITHIN REACH. BED RAILS UP. AT BEDSIDE.
--- NOTE | 2022-02-16 13:11 | NUR ---
PT CALL LIGHT ON. PT REQUESTS ASSISTANE UP TO THE RESTROOM. STAND BY ASSIST UP TO RESTROOM. PT REPORTS SHE DID NOT LIKE HER LUNCH AND HER WILL BRING FOOD FROM OUTSIDE HOSPITAL. PT DENIES ADDITIONAL REQUESTS OR COMPLAINTS. STATES SHE WILL USE CALL LIGHT WHEN FINISHED IN THE RESTROOM. CALL LIGHT WITHIN REACH. NO ADDITIONAL NEEDS.
--- NOTE | 2022-02-16 13:24 | NUR ---
BATHROOM CALL LIGHT ON. STAND BY ASSIST UP TO CHAIR. PT ENCOURAGED TO AMBULATE, DECLINES AT THIS TIME. PTS ARRIVED WITH SOUP FOR LUNCH. PT DENIES ADDITIONAL REQUESTS OR COMPLANTS. CALL LIGHT WITHIN REACH.
--- NOTE | 2022-02-16 13:52 | NUR ---
MEDICATION DUE. PT REPORTS / ACHING PAIN IN ABDOMEN. PT DENIES [place]. MEDICAITONS GIVEN. EMULSION OPERATOR AT BEDSIDE FOR VITAL SIGNS. PT REMAINS UP TO CHAIR EATING SOUP AND MILKSHAKE. NO ADDITIONAL REQUESTS OR COMPLAINTS. CALL LIGHT WITHIN REACH. PT STATES SHE IS PLANNING TO AMBULATE WITH HER "IN A BIT."
--- NOTE | 2022-02-16 14:20 | NUR ---
PATIENT IS WALKING LAPS IN THE MUÑIZ WITH . BED BATH ITEMS HAVE BEEN BROUGHT INTO THE ROOM.
--- NOTE | 2022-02-16 14:50 | NUR ---
AFTERNOON ASSESSMENT DUE. PT RETURNING FROM WALK IN THE HALLWAY, PT REPORTS SHE WAS ABLE TO AMBULATE X4 LAPS IN MUÑIZ WITH STAND BY ASSIST. PT REPORTS PAIN IS IMPROVING WITH PAIN MEDICATIONS, NOW AT 4/10. PT REPORTS NAUSEA AFTER WALKING, SEE MAR FOR MEDICATION GIVEN. PT REMAINS ALERT AND OREINTED. HEART TONES REGULAR. LUNG SOUNDS CLEAR. PT TOLERATING ROOM AIR WITH OXYGEN SATURATIONS ABOVE 94%. BOWEL TONES ACTIVE. ABDOMEN SOFT BUT REMAINS TENDER TO TOUCH. MIDLINE INCISION D/I WITH STERI STRIPS INTACT, EDGES WELL APROXIMATED. OLD RED, DRY DRAINAGE UNCHANGED. NO NEW DRAINGE NOTED. PT REPORTS SHE HAD ANOTHER "GINGERBREAD" BOWEL MOVEMENT. SCRUGGS CATHETER REMAINS IN PLACE WITH CLEAR YELLOW URINE. STERI STRIPS INTACT OVER LAPAROSCOPIC SITES. NO DRAINGE NOTED. BANDDAID C/D/I OVER OLD ARSEN SITE. PT VISITING WITH FRIENDS AND FAMILY AT BEDSIDE. PT DENEIS ADDITIONAL REQUESTS OR COMPLAINTS. CALL LIGHT WITHIN REACH. BED RAILS UP.
--- NOTE | 2022-02-16 15:58 | NUR ---
THIS RN TO ROOM TO CHECK ON PT. PT RESTING IN BED. REPORTS NASUEA HAS RESOLVED AND ABOMDINAL PAIN IS AT 3/10, PT DENIES NEED FOR ADDITONAL MEDICATION AT THIS TIME. ICE PACK REFILLED. NO ADDITIONAL REQUESTS OR COMPLAINTS AT THIS TIME. CALL LIGHT WITHIN REACH. BED RAILS UP.
--- NOTE | 2022-02-16 16:24 | NUR ---
PT POST OP DAY 5 AFTER EXPLORATORY LAPAROTOMY. PT INDEPENDANT IN ROOM WITH OCCATIONAL STAND BY ASSIST FOR ENCORUAGEMENT. PT TOLERATING REGULAR DIET WITH MODERATE APPITITE, PO INTAKE ENCOURAGED. BOWERL MOVEMENT NOTED THIS SHIFT. BOWEL TONES ACTIVE. MID LINE INCISION WNL WITH EDGES WELL APROXIMATED, STERI STRIPS INTACT. PT DID BED BATH THIS SHIFT AND SELF JERAMY CARE. EDUCATION DONE REGARDING SCRUGGS CATHETER HOME CARE. PT DEMONSRATES UNDERSTANDING AND CORRECT USE OF SCRUGGS CATHETER AND CATHETER CARE. ARSEN DRAIN REMOVED THIS SHIFT BY , BANDAID IN PLACE. LEFT FORARM IV REMAINS SALINE LOCKED. PT USES 1-2L O2 BY NC WHILE SLEEPING PER HER OWN DISGRESSION FOR COMFORT. PT VOIDIGN QUANTITY SUFFICIENT. PT USES CALL LIGHT AND MAKES NEEDS KNOWN.
--- NOTE | 2022-02-16 16:55 | NUR ---
patient walked 3 laps around med/surg. patient didn't need any assistance. this TOP TRIMMER walked with the patient as stanb by.
--- NOTE | 2022-02-16 17:09 | NUR ---
DINNER DELIVERED. PT REPORTS EXCITMENT TO EAT. PT DENIES ADDITIONAL REQUESTS OR COMPLAINTES. REPORTS SHE AMBULATE IN THE MUÑIZ WITHOUT ISSUE. CALL LIGHT WITHIN REACH. BED RAILS UP.
--- NOTE | 2022-02-16 18:17 | NUR ---
THIS RN TO ROOM TO CHECK ON PT. PT RESTING IN BED ON BACK WITH EYES CLOSED. RESPIRATIONS EVEN AND UNALBORED. BED RAILS UP. CALL LIGHT WITHIN REACH. PT ALLOWED TO REST.
--- NOTE | 2022-02-16 19:37 | NUR ---
SHIFT REPORT FROM [facility], PT HAS AMBULATED, MEDICATED FOR NAUSEA X1, CONSISTENT PAIN MANAGEMENT WITH DILAUDID AND TYLENOL. NO NEW CONCERNS, LIKELY DISCHARGE TOMORROW.
--- NOTE | 2022-02-16 21:28 | NUR ---
PT RESTING IN BED, ALERT AND ORIENTED. PT IS SMILING AND IN GOOD SPIRITS THIS EVENING, SHE REPORTS PAIN 6/10 AND WOULD LIKE 4MG PO DILAUDID PRN WITH SCHEDULED TYLENOL AT THIS TIME. FRESH ICE WATER AND ICE PACK PROVIDED. ASSESSMENT COMPLETE
--- NOTE | 2022-02-17 01:00 | NUR ---
PT RESTING IN BED EYES CLOSED NO DISTRESS NOTED. RR 16 BPM
--- NOTE | 2022-02-17 05:40 | NUR ---
PT HAS SLEPT WELL OVER SHIFT, SHE HAS BEEN ADMINSTERED DILAUDID PRN WITH SCHEDULED TYLENOL AND REPORTS GOOD PAIN MANAGEMENT, NO NAUSEA, URINE OUT QUANTITY SUFFICIENT, PT EMPTIES HERSELF. NO NEW CONCERNS OVER SHIFT, PT HAS BEEN ALERT AND ORIETNED TO ALL FOR ASSESSMENTS
--- NOTE | 2022-02-17 07:16 | NUR ---
Report received from [facility]. Pt resting in bed with eyes closed, even and unlabored respirations. No needs identified at this time. Will continue plan of care.
--- NOTE | 2022-02-17 08:54 | NUR ---
Scheduled medications administered and assessment complete. Pt SBA to chair for breakfast, linens changed. Pt states 3/10 pain right now, tolerable and denies need for PRN meds. ABD visualized, midline incision C/D/I. ABD scattered bruised from hep injections. Pt on room air. States no needs at this time. Discussed POC for potential DC, pt agreeable. Call light in reach.
--- NOTE | 2022-02-17 11:20 | NUR ---
INTO ROOM TO FOLLOW UP WITH PATIENT. PATIENT LAYING IN BED WATCHING TV. PATIENT STATES SHE FEELS SHE IS ABLE TO GO HOME TODAY. NO FURTHER NEEDS AT THIS TIME.
--- NOTE | 2022-02-17 12:58 | NUR ---
PT RESTING IN BED-ALERT AND ORIENTED. PT HAS A SMILE, SAID SHE HOPES TO DC TODAY. WAITING FOR DR OAKES. HAD GOOD VISIT, PT KNOWS SHE HAS A TAYLOR, IS BEEN UP AGAINST THIS BEFORE. GAVE BLESSING, WILL FOLLOW
--- NOTE | 2022-02-17 13:30 | NUR ---
Scheduled pain medication and PRN Meds administered (4mg dilaudid). pt up to chair visiting with staff and family. Fresh ice pack provided and ice water. No further needs.
[2022-02-17] MEDS ORDERED: ACETAMINOPHEN500 MG PO (14:42)
[2022-02-17] MEDS ORDERED: HYDROMORPHONE HC4 MG PO (14:42)
--- NOTE | 2022-02-17 16:23 | NUR ---
PATIENT GIVEN DISCHARGE INSTRUCTIONS, SL REMOVED WITH CATHETER INTACT. PATIENT GIVEN WHEELCHAIR RIDE TO FRONT DOOR, DAUGHTER TRANSPORTING HOME.
[2022-02-19] MEDS ORDERED: DOXYCYCLINE HY100 MG PO (18:52)
--- NOTE | 2022-02-21 11:42 | DS ---
[facility] [address] [place], [place] [address] Signed ADMISSION DATE: 02/11/2022 DISCHARGE DATE: 02/17/2022 REASON FOR ADMISSION: This 66-year-old white woman is a patient of Dr. Aryan Carrion and well known to me from the past having undergone extended right colectomy for stage III colon cancer in 2016. She has had surveillance colonoscopies and occasional excision of polyps. She has undergone postoperative chemotherapy as she had 9 of 27 lymph nodes positive for metastatic disease and all of this under the direction of Dr. Lemus. She recently was having right flank and right lower abdominal pain and underwent CT scan of the abdomen (initially a uroabdomen CT) under the direction of LIVE Mcneil, which showed no evidence of nephrolithiasis, but did confirm a 4 cm right hepatic lobe metastatic lesion with omental abnormality suggestive of metastatic disease as well as an amorphic pelvic mass. She was referred for further evaluation and care. CA-125, CA19-9 and CEA tumor markers were all found to be normal. Notably, her perioperative CEA from her original colon cancer was normal as well. She has seen Dr. Lemus and myself and we have recommended laparoscopy and possible laparotomy to ascertain the extent of what is likely recurrent colon cancer and possible resectional therapy if considered beneficial. Given her pain, the lesion in the right pelvis would likely be resected for palliative intent understanding that a cure would be unlikely whether resection was performed or not. It is unclear regarding extent of liver involvement. She is admitted for operative evalution of extent of disease and resection of the symptomatic pelvic mass. PHYSICAL EXAMINATION: GENERAL: An obese white woman who looked to be in no acute distress. NECK: Normal. There is no cervical adenopathy. No supraclavicular adenopathy. CHEST: Clear. HEART: Regular without murmur. ABDOMEN: Obese, but soft. the midline incision is well healed. She shows no gross evidence of ascites. EXTREMITIES: Show no clubbing, cyanosis, or edema. LABORATORY DATA: Lab studies including CBC and Chem profile were normal. CEA normal. HOSPITAL COURSE: On February 11, 2022, she underwent laparoscopy with conversion to laparotomy. A laparoscopic liver biopsy was performed on a small suspicious nodule directly in the Electronically Signed By: TORRES OAKES MD 02/21/22 1142 PATIENT NAME: SHANNON PEÑA DISCHARGE SUMMARY DATE OF : 59 REPORT #: [id number] PHYSICIAN: TORRES OAKES MD PCP: ARYAN CARRION PAC REPORT IS CONFIDENTIAL AND NOT TO BE RELEASED WITHOUT AUTHORIZATION [facility] [address] [place], [place] [address] Signed border between the left and right lobes of the liver. Laparotomy was then made in a low pelvic incision so as to minimize upper abdominal postoperative incisional pain and resection of a large firm mass corresponding to the pelvic inlet, likely a metastatic lesion of colon cancer to the ovary with direct extension to surrounding omentum as well as the dome of the bladder and to the sigmoid colon. Resection included en block resection including partial cystectomy, adnexal resection including ovary, tubes and portion of colon (sigmoid) contiguous with the lesion. An end-to-end colocolostomy was performed. A drain was placed in the pelvis. Postoperatively, she was maintained with Shelton catheter throughout the hospitalization anticipating at least two weeks of decompression to allow for bladder healing following partial cystectomy. She had progressive improvement with various interventions to include pain control measures. By day of discharge, she is ambulating well, tolerating a regular diet, has normal bowel movements. Shelton catheter shows clear draining urine and she is well-versed with its care. A pelvic drain was placed, which was removed the day prior to discharge. Her incision was healing well. It is my plan to remove the indwelling Shelton catheter within 7-10 days as the bladder resection line should have healed reasonably by then. She will be considered for palliative additional therapy. The final pathology is still pending. HER DISCHARGE MEDICATIONS: 1. Dilaudid 4 mg tablets 1-2 p.o. q 6 hours p.r.n. pain #20. 2. Tylenol 500 mg two tablets p.o. q.6 hours p.r.n. pain #60. 3. She will resume her usual medications of albuterol sulfate two puffs q.6h as needed. 4. Claritin 5 mg p.o. daily as needed. 5. Flonase Allergy Relief 5 mcg spray two sprays each no nostril as day as needed for allergies. 6. Benadryl 25 mg p.o. daily as needed for allergies. 7. Vitamin D 2000 unit capsule daily. 8. Multivitamin p.o. daily. 9. Vitamin E 180 mg (400 units) p.o. daily. 10. Magnesium 200 mg tablet p.o. daily. 11. Deep blue Relief gel topically as needed for joint pain. She would discontinue her, Vicodin which she had been taking previously from time to time. FOLLOWUP PLAN: She will see me in 7-10 days for catheter removal. Arrangements to be made to see Electronically Signed By: TORRES OAKES MD 02/21/22 1142 PATIENT NAME: SHANNON PEÑA DISCHARGE SUMMARY DATE OF : 59 REPORT #: [id number] PHYSICIAN: TORRES OAKES MD PCP: ARYAN CARRION PAC REPORT IS CONFIDENTIAL AND NOT TO BE RELEASED WITHOUT AUTHORIZATION [facility] [address] [place] [id number] Signed Aubrey for additional chemotherapy considerations. DISCHARGE DIAGNOSES: 1. 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 2. Probable metastatic disease to the liver. 3. Status post laparoscopy with liver biopsy and conversion to open laparotomy with en block resection of the symptomatic mass including resection of pelvic mass bilateral adnexa, right ovary, dome of bladder and sigmoid colon. 4. Obesity. 5. Reactive airways disease and seasonal allergies. MD MARKOS Richter/SHAILESH /[id number] cc: MD Aryan Villavicencio PA-C Danielle Addleman, PA-C Copies: NAJMA LEMUS MD ~ Electronically Signed By: TORRES OAKES MD 02/21/22 1142 PATIENT NAME: SHANNON PEÑA DISCHARGE SUMMARY DATE OF : 59 REPORT #: [id number] PHYSICIAN: TORRES OAKES MD PCP: ARYAN CARRION PAC REPORT IS CONFIDENTIAL AND NOT TO BE RELEASED WITHOUT AUTHORIZATION
== END 2022-02-17 16:05 | disposition home or self-care (01) | DRG 330 ==
LOC: DS 05:59 → OPS 05:59 → DS 07:30 → OPS 07:30 → MS 13:33 → OPS 13:34 → MS 13:35
PROVIDERS: ADMIT Surgery; ATTEND Surgery
PROC: 0TBB0ZZ Excision of Bladder, Open Approach (ICD-10-PCS; 2022-02-11)
PROC: 0DBM0ZZ Excision of Descending Colon, Open Approach (ICD-10-PCS; 2022-02-11)
PROC: 0WBH0ZZ Excision of Retroperitoneum, Open Approach (ICD-10-PCS; 2022-02-11)
PROC: 0DBU0ZZ Excision of Omentum, Open Approach (ICD-10-PCS; 2022-02-11)
PROC: 0DJD4ZZ Inspection of Lower Intestinal Tract, Percutaneous Endoscopic Approach (ICD-10-PCS; 2022-02-11)
PROC: 0FB14ZX Excision of Right Lobe Liver, Percutaneous Endoscopic Approach, Diagnostic (ICD-10-PCS; 2022-02-11)
PROC: 0DTN0ZZ Resection of Sigmoid Colon, Open Approach (ICD-10-PCS; principal; 2022-02-11 07:30)
DX: C18.7 Malignant neoplasm of sigmoid colon (principal); C18.6 Malignant neoplasm of descending colon; C78.7 Secondary malignant neoplasm of liver and intrahepatic bile duct; C79.89 Secondary malignant neoplasm of other specified sites; Z68.41 Body mass index [BMI] 40.0-44.9, adult; C79.61 Secondary malignant neoplasm of right ovary; C78.6 Secondary malignant neoplasm of retroperitoneum and peritoneum; C79.11 Secondary malignant neoplasm of bladder; Z88.1 Allergy status to other antibiotic agents; Z53.31 Laparoscopic surgical procedure converted to open procedure; E66.01 Morbid (severe) obesity due to excess calories; Z96.653 Presence of artificial knee joint, bilateral; Z88.5 Allergy status to narcotic agent; Z88.0 Allergy status to penicillin; Z91.018 Allergy to other foods; Z79.899 Other long term (current) drug therapy; Z85.038 Personal history of other malignant neoplasm of large intestine; Z90.710 Acquired absence of both cervix and uterus; Z90.49 Acquired absence of other specified parts of digestive tract; Z98.890 Other specified postprocedural states; Z92.21 Personal history of antineoplastic chemotherapy
CPT/HCPCS: 00790; 36415; 76942; 80053; 85025; 88307; 88309; A9270; J0131; J0690; J0694; J1100; J1170; J1644; J1885; J2001; J2060; J2250; J2270; J2405; J2704; J2795; J3010; J7121; U0003

== ENCOUNTER 2022-06-06 18:41 | Emergency (ER) | payer MEDICARE ==
[~2022-06-06] VITALS: Ht 160 cm; Wt 94.4 kg
[~2022-06-06 18:41] MED LIST changes: +ACETAMINOPHEN500 MG PO; +DEEP BLUE RELI TOP; +HYDROMORPHONE HC4 MG PO; +MAGNESIUM200 MG PO; +MULTI-VITAMIN1 EACH PO; +VITAMIN D350 MCG PO; +VITAMIN E180 M1 PO; +VITAMIN E180 MG PO
--- OUTSIDE RECORDS SUMMARY | 2022-06-06 18:44 | XMS ---
PreManage Notification: SHANNON PEÑA Security Lab Instructor Events No recent Security Events currently on file CRITERIA MET - PDMP CARE PROVIDERS ARYAN CRARION Physician B2B Outside Sales Representative 08/19/2021-Current PHONE: Unknown [facility] has no Care Guidelines for this patient. [facility] VISIT COUNT (12 MO.) 3 [facility] TOTAL 3 NOTE: Visits indicate total known visits. ED/UCC VISIT TRACKING (12 MO.) 06/06/2022 18:42 [facility] TYPE: Emergency COMPLAINT: - N/V 3 WEEK CANCER PT 02/19/2022 17:32 [facility] TYPE: Emergency COMPLAINT: - POST OP PROBLEM DIAGNOSES: - Allergy status to other antibiotic agents - Allergy status to penicillin - Other surgical procedures as the cause of abnormal reaction of the patient, or of later complication, without mention of misadventure at the time of the procedure - Disruption of external operation (surgical) wound, not elsewhere classified, initial encounter - Other penitentiary (current) drug therapy - Allergy to other foods 08/17/2021 20:40 [facility] TYPE: Emergency COMPLAINT: - ALLERGIC REACTION DIAGNOSES: - Allergy status to penicillin - Allergy status to other drugs, medicaments and biological substances - Allergy status to narcotic agent - Unspecified asthma, uncomplicated - Shortness of breath - Allergy status to other antibiotic agents - Allergy, unspecified, initial encounter - Allergy, unspecified, initial encounter - Other termite renewal inspector (current) drug therapy INPATIENT VISIT TRACKING (12 MO.) 02/11/2022 13:[address] [facility] TYPE: Medical Surgical COMPLAINT: - SP LAPAROTOMY WITH PARTIAL BLADDER RESECTION, PART DIAGNOSES: - Secondary malignant neoplasm of bladder - Other penitentiary (current) drug therapy - Presence of artificial knee joint, bilateral - Other termite renewal inspector (current) drug therapy - Allergy to other foods - Secondary malignant neoplasm of liver and intrahepatic bile duct - Allergy status to other antibiotic agents - Personal history of other malignant neoplasm of large intestine - Laparoscopic surgical procedure converted to open procedure - Malignant neoplasm of descending colon - Secondary malignant neoplasm of liver and intrahepatic bile duct - Secondary malignant neoplasm of other specified sites - Secondary malignant neoplasm of other specified sites - Upper abdominal pain, unspecified - Acquired absence of both cervix and uterus - Personal history of antineoplastic chemotherapy - Secondary malignant neoplasm of retroperitoneum and peritoneum - Morbid (severe) obesity due to excess calories - Body mass index [BMI] 40.0-44.9, adult - Acquired absence of both cervix and uterus - Secondary malignant neoplasm of right ovary - Personal history of antineoplastic chemotherapy - Allergy to other foods - Malignant neoplasm of sigmoid colon - Other specified postprocedural states - Acquired absence of other specified parts of digestive tract - Allergy status to other antibiotic agents - Secondary malignant neoplasm of liver and intrahepatic bile duct - Acquired absence of other specified parts of digestive tract - Presence of artificial knee joint, bilateral - Allergy status to narcotic agent - Secondary malignant neoplasm of bladder - Morbid (severe) obesity due to excess calories - Allergy status to penicillin - Body mass index [BMI] 40.0-44.9, adult - Other specified postprocedural states - Secondary malignant neoplasm of retroperitoneum and peritoneum - Malignant neoplasm of sigmoid colon - Laparoscopic surgical procedure converted to open procedure - Allergy status to penicillin - Secondary malignant neoplasm of right ovary - Allergy status to narcotic agent [email or web address]
[2022-06-06] MEDS ORDERED: PERCOCET 7.5-31 EACH PO (23:42)
[2022-06-06] MEDS ORDERED: REGLAN10 MG PO (23:42)
[2022-06-06] MEDS ORDERED: CEPHALEXIN500 M1 PO (23:42)
== END 2022-06-07 00:16 | disposition home or self-care (01) ==
LOC: ED 18:41
DX: N39.0 Urinary tract infection, site not specified (principal); R11.2 Nausea with vomiting, unspecified; J45.909 Unspecified asthma, uncomplicated; C18.9 Malignant neoplasm of colon, unspecified; Z88.0 Allergy status to penicillin; Z88.8 Allergy status to other drugs, medicaments and biological substances; Z88.1 Allergy status to other antibiotic agents; Z79.899 Other long term (current) drug therapy; Z91.048 Other nonmedicinal substance allergy status
CPT/HCPCS: 36415; 74177; 80053; 81001; 83690; 85025; 87088; 96361; 96375; 96376; 99284-25; A9270; J1170; J2405; J7030; Q9967

== ENCOUNTER 2022-08-20 13:12 | Emergency (ER) | payer MEDICARE ==
[~2022-08-20] VITALS: Ht 162.6 cm; Wt 81.7 kg
[~2022-08-20 13:12] MED LIST changes: +CEPHALEXIN500 M1 PO; +REGLAN10 MG PO
--- OUTSIDE RECORDS SUMMARY | 2022-08-20 13:14 | XMS ---
PreManage Notification: SHANNON PEÑA Security Optometry Professor Events No recent Security Events currently on file CRITERIA MET - PDMP CARE PROVIDERS ARYAN CARRION Physician Risk Assessor 08/19/2021-Current PHONE: Unknown [facility]uh has no Care Guidelines for this patient. [facility] VISIT COUNT (12 MO.) 3 MIGUEL Denise TOTAL 3 NOTE: Visits indicate total known visits. ED/UCC VISIT TRACKING (12 MO.) 08/20/2022 13:13 [facility] TYPE: Emergency COMPLAINT: - DEHYDRATION, WEAK 06/06/2022 18:42 [facility] TYPE: Emergency COMPLAINT: - N/V 3 WEEK CANCER PT DIAGNOSES: - Unspecified asthma, uncomplicated - Urinary tract infection, site not specified - Allergy status to other antibiotic agents - Unspecified abdominal pain - Other nonmedicinal substance allergy status - Malignant neoplasm of colon, unspecified - Allergy status to penicillin - Allergy status to other drugs, medicaments and biological substances - Nausea with vomiting, unspecified - Other alf (current) drug therapy 02/19/2022 17:32 [facility] TYPE: Emergency [...] not elsewhere classified, initial encounter - Other alf (current) drug therapy - Allergy to other foods INPATIENT VISIT TRACKING (12 MO.) 02/11/2022 13:[address] [facility] TYPE: Medical Surgical COMPLAINT: - SP LAPAROTOMY WITH PARTIAL BLADDER RESECTION, PART DIAGNOSES: - Laparoscopic surgical procedure converted to open procedure - Malignant neoplasm of sigmoid colon - Secondary malignant neoplasm of right ovary - Allergy status to narcotic agent - Allergy status to penicillin - Other alf (current) drug therapy - Secondary malignant neoplasm of bladder - Other alf (current) drug therapy - Allergy to other foods - Presence of artificial knee joint, bilateral - Allergy status to other antibiotic agents - Secondary malignant neoplasm of liver and intrahepatic bile duct - Laparoscopic surgical procedure converted to open procedure - Malignant neoplasm of descending colon - Personal history of other malignant neoplasm of large intestine - Secondary malignant neoplasm of other specified sites - Secondary malignant neoplasm of other specified sites - Secondary malignant neoplasm of liver and intrahepatic bile duct - Personal history of antineoplastic chemotherapy - Upper abdominal pain, unspecified - Acquired absence of both cervix and uterus - Morbid (severe) obesity due to excess calories - Body mass index [BMI] 40.0-44.9, adult - Secondary malignant neoplasm of retroperitoneum and peritoneum - Secondary malignant neoplasm of right ovary - Acquired absence of both cervix and uterus - Allergy to other foods - Malignant neoplasm of sigmoid colon - Personal history of antineoplastic chemotherapy - Acquired absence of other specified parts of digestive tract - Other specified postprocedural states - Secondary malignant neoplasm of liver and intrahepatic bile duct - Acquired absence of other specified parts of digestive tract - Allergy status to other antibiotic agents - Allergy status to narcotic agent - Presence of artificial knee joint, bilateral - Allergy status to penicillin - Secondary malignant neoplasm of bladder - Morbid (severe) obesity due to excess calories - Other specified postprocedural states - Secondary malignant neoplasm of retroperitoneum and peritoneum - Body mass index [BMI] 40.0-44.9, adult [email or web address]
[2022-08-20] MEDS ORDERED: LORAZEPAM1 MG PO (13:41)
[2022-08-20] MEDS ORDERED: DEXAMETHASONE4 MG PO (13:43)
[2022-08-20] MEDS ORDERED: OLANZAPINE5 MG PO (13:43)
== END 2022-08-20 20:40 | disposition home or self-care (01) ==
LOC: ED 13:12
DX: J10.1 Influenza due to other identified influenza virus with other respiratory manifestations (principal); J45.909 Unspecified asthma, uncomplicated; Z20.822 Contact with and (suspected) exposure to COVID-19; Z88.0 Allergy status to penicillin; Z88.8 Allergy status to other drugs, medicaments and biological substances; Z91.018 Allergy to other foods; Z88.1 Allergy status to other antibiotic agents; Z79.899 Other long term (current) drug therapy
CPT/HCPCS: 36415; 71045; 80053; 85025; 85060; 87502; 96361; 96374; 96376; 99284-25; J2405; J7030; U0003